=== PATIENT | female | born 1935 | race Two or more races ===

== ENCOUNTER 2017-03-26 23:37 | Inpatient (IN) | payer OTHER ==
--- NOTE | 2017-03-27 00:09 | PDOC ---
History of Present Illness - General Stated Complaint: BLOOD BLISTER/ DIABETES Time Seen by Provider: 03/26/17 23:48 History Source: Patient, Family Exam Limitations: No Limitations - History of Present Illness Initial Comments: 03/27/17 00:13 82y F hx of htn, dm, presents with L foot blister on her 4th toe x 2 weeks, she went to her doctor earlier this week who gave her a topical cream. Earlier today the pt had a rupture of the blister with blood. pt denies any recent trauma, falls, injuries, fever/chills. pt denies any cp, sob, abd pain, n/v. family with patient notes the pts toe looks abit dark yesteday but appears slightly improved today Past History - Past Medical History Allergies/Adverse Reactions: Allergies Allergy/AdvReac Type Severity Reaction Status Date / Time No Known Allergies Allergy Verified 03/27/17 00:14 Review of Systems - Review of Systems Able to Perform ROS?: Yes Comments:: 03/27/17 00:27 Constitutional - no reported Fever, Chills, HEENT: no reported vision changes, sore throat Respiratory: no reported cough, sob, hemoptysis Cardiac: no reported chest pain, palpitations, light headedness, leg swelling Abd/GI: no reported abd pain, nausea, vomiting, blood per rectum, melena, diarrhea : no reported dysuria, frequency, discharge Musculskelatal - no reported back pain, joint swelling skin - +foot wound no reported bruising, erythema, rash neurological: no reported headache, numbness, focal weakness, tingling, ataxia, hematologic: no reported anemia, easy bruising, easy bleeding *Physical Exam - Physical Exam Comments: 03/27/17 00:31 GENERAL: The patient is awake, alert, and fully oriented, Nontoxic - in no acute distress. HEAD: Normocephalic, atraumatic. EYES: extraocular movements intact, sclera anicteric, conjunctiva clear. ENT: Normal voice, Moist mucous membranes. NECK: Normal range of motion, supple LUNGS: Breath sounds equal, clear to auscultation bilaterally. No wheezes, no rhonchi, no rales. HEART: Regular rate and rhythm, normal S1 and S2 without murmur, rub or gallop. ABDOMEN: obese, Soft, nontender, normoactive bowel sounds. No guarding, no rebound. . No CVA tenderness EXTREMITIES: Normal range of motion, ulcer on the pts plantar aspect of 4th digit on left foot, no discharge or bleeding, +foul smelling, +deroofed blister , NEUROLOGICAL: No facial assymetry, Normal speech, moving all 4 extremities spontaneusly and symmetrically PSYCH: Normal mood, normal affect. SKIN: Warm, Dry, normal turgor, ED Treatment Course - LABORATORY CBC & Chemistry Diagram: 03/27/17 00:40 03/27/17 00:40 Medical Decision Making - Medical Decision Making 03/27/17 00:39 concern for possible diabetic ulcer vs osteo will obtain blood work, xray to r/o osteo will reasses 03/27/17 02:39 labs reviewed noted for mild elevation of cr/esr, leukocytosis the pts foot xray shws no gas there does appear to be erosion of the bone on the 4th digit cxr negative pt given zosyn will admit for further management of diabetic ulcer/wound 03/27/17 02:[address] jacobson agreed with admision for further management will admit to med surg under dr. mon service for management of diabetic ulcer and concern for osteomyelitis Case discussed in detail with admitting physician including history, physical exam and ancillary studies. Admitting physician has assumed care for the patient, will follow all pending diagnostics and will complete the evaluation and treatment. *DC/Admit/Observation/Transfer Diagnosis at time of Disposition: Diabetic ulcer of left foot Qualifiers: Diabetic foot ulcer location: toe Diabetes mellitus type: type 1 Non-pressure ulcer stage: with necrosis of bone Qualified Code(s): E10.621 - Type 1 diabetes mellitus with foot ulcer - Discharge Dispostion Admit: Yes - Referrals Referrals: STAFF,NOT ON [Primary Care Provider] -
[2017-03-27 00:54] LABS: BASOPHIL 1.1 % (0-2.0); EOSINOPHIL 1.8 % (0-4.5); MCH 25.8 pg (25.7-33.7); MEAN CELL VOLUME 80.7 fl (80-96); MEAN PLT VOLUME 10.9 fl (7.5-11.1); NEUTROPHILS 62.3 % (42.8-82.8); PLATELET COUNT 201 K/MM3 (134-434); RDW 16.1 % (11.6-15.6); WHITE BLOOD COUNT 10.6 K/mm3 (4.0-10.0)
[2017-03-27 01:12] LABS: PLATELET ESTIMATE ADEQUATE (NORMAL)
[2017-03-27 01:16] LABS: ALK PHOS 156 U/L (45-117); ANION GAP 9 (8-16); BILIRUBIN,TOTAL 0.3 mg/dL (0.2-1.0); C-REACTIVE PROTEIN 0.9 MG/DL (0.00-0.3); CALCIUM 8.7 mg/dL (8.5-10.1); CO2 29 mmol/L (21-32); CREATININE 1.1 mg/dL (0.55-1.02); SGOT/AST 12 U/L (15-37); SGPT/ALT 20 U/L (12-78); TOT PROT 7.4 g/dl (6.4-8.2)
[2017-03-27 01:18] LABS: GLUCOSE,RANDOM 321 mg/dL (74-106)
[2017-03-27 02:05] LABS: ERYTHROCYTE SEDIMENTATION RATE 32 mm/hr (0-30)
[2017-03-27] MEDS ORDERED: PIPERACILLIN/TAZOB 4.5 GM/100 ML PRE-DOCKED IVPB ONE (02:10)
[2017-03-27] MEDS ORDERED: PIPERACILLIN/TAZOB 4.5 GM 100 ML IVPB ONE (02:26)
[2017-03-27] MEDS ORDERED: LISINOPRIL 20 MG TABLET (FP) PO ONE (03:55)
[2017-03-27] MEDS ORDERED: HYDROCHLOROTHIAZIDE 25 MG TABLET (FP) PO ONE (03:55)
--- NOTE | 2017-03-27 03:58 | HP ---
<Mo Chadwick - Last Filed: 03/30/17 08:42> CHIEF COMPLAINT: blister popping and bleeding PCP: Dr. Maddox HISTORY OF PRESENT ILLNESS: 82F hx of HtN and IDDM presenting with left 4th toe blister for past 2 weeks. Pt states that she went to her doctor earlier this week and was prescribed a topical cream. Earlier today the pt had a rupture of the blister with bleeding. She states that the pain is in her toe is sharp, 4/10 in severity, and she is able to ambulate on it. Pt denies any recent trauma, falls, injuries, fever/ chills, SOB, chest pain, abdominal pain, n/v/d/c, and dysuria. ER course was notable for: Foot XR showing bony erosion of distal phalanx of 4th toe. Recent Travel: none PAST MEDICAL HISTORY: HTN IDDM PAST SURGICAL HISTORY: Hysterectomy Social History: Smoking: none Alcohol: none Drugs: none Lives with daughter Family History: Allergies No Known Allergies Allergy (Verified 03/27/17 00:14) HOME MEDICATIONS: REVIEW OF SYSTEMS CONSTITUTIONAL: Absent: fever, chills, diaphoresis, generalized weakness, malaise, loss of appetite, weight change HEENT: Absent: rhinorrhea, nasal congestion, throat pain, throat swelling, difficulty swallowing, mouth swelling, ear pain, eye pain, visual changes CARDIOVASCULAR: Absent: chest pain, syncope, palpitations, irregular heart rate, lightheadedness , peripheral edema RESPIRATORY: Absent: cough, shortness of breath, dyspnea with exertion, orthopnea, wheezing, stridor, hemoptysis GASTROINTESTINAL: Absent: abdominal pain, abdominal distension, nausea, vomiting, diarrhea, constipation, melena, hematochezia GENITOURINARY: Absent: dysuria, frequency, urgency, hesitancy, hematuria, flank pain, genital pain MUSCULOSKELETAL: Absent: myalgia, arthralgia, joint swelling, back pain, neck pain Present: toe pain, toe blister SKIN: Absent: rash, itching, pallor HEMATOLOGIC/IMMUNOLOGIC: Absent: easy bleeding, easy bruising, lymphadenopathy, frequent infections ENDOCRINE: Absent: unexplained weight gain, unexplained weight loss, heat intolerance, cold intolerance NEUROLOGIC: Absent: headache, focal weakness or paresthesias, dizziness, unsteady gait, seizure, mental status changes, bladder or bowel incontinence PSYCHIATRIC: Absent: anxiety, depression, suicidal or homicidal ideation, hallucinations. PHYSICAL EXAMINATION GENERAL: Awake, alert, and fully oriented, in no acute distress. HEAD: Normal with no signs of trauma. EYES: Pupils equal, round and reactive to light, extraocular movements intact, sclera anicteric, conjunctiva clear. No lid lag. EARS, NOSE, THROAT: Ears normal, nares patent, oropharynx clear without exudates. Moist mucous membranes. NECK: Normal range of motion, supple without lymphadenopathy, JVD, or masses. LUNGS: Breath sounds equal, clear to auscultation bilaterally. No wheezes, and no crackles. No accessory muscle use. HEART: Regular rate and rhythm, normal S1 and S2 without murmur, rub or gallop. ABDOMEN: Soft, nontender, not distended, normoactive bowel sounds, no guarding, no rebound, no masses. No hepatomegaly or splenomegaly. MUSCULOSKELETAL: left 4th distal phalanx shows a ruptured blister, a plantar 1.5cm ulcer mostly covered by a clot, and a horizontal laceration at the distal aspect. The entire toe is discolored, sensation is intact, motor function is intact, mildly tender to palpation. DP and PT pulses are 1+ in left foot. NEUROLOGICAL: Cranial nerves II-XII intact. Normal speech. gait not observed. PSYCHIATRIC: Cooperative. Good eye contact. Appropriate mood and affect. ASSESSMENT/PLAN: 82F hx of HTN and IDDM presenting with acute left 4th distal toe ruptured blister and plantar ulcer, found to be hypertensive to 190/67 and have XR evidence of bony erosion, suspicious for osteomyelitis. #left 4th distal toe ruptured blister and plantar ulcer -likely 2/2 to hx of IDDM -XR evidence of bony erosion, suspicious for osteomyelitis. F/u final radiology report -wbc count of 10.6, no temp recorded, minimally elevated CRP and ESR. trend wbc and temps -ID on board, Dr. Pennington, f/u recs -continue zosyn for now, consider vanc coverage for MRSA -podiatry on board -f/u wound cx and sensitivities -APAP for pain or temp -MRI w/ contrast ordered #HTN -continue home dose of lisinopril 40mg qd and HCTZ 25mg qd -monitor BP #IDDM -ISS, BGM ACHS -f/u Hgba1c #HLD -continue atorvastatin 20mg qd #FEN/PPx -NS at 100 -electrolytes wnl -diabetic diet -no GI ppx -lovenox 40 -Mo Chadwick MD PGY1 Visit type - Emergency Visit Emergency Visit: Yes ED Registration Date: 03/27/17 Care time: The patient presented to the Emergency Department on the above date and was hospitalized for further evaluation of their emergent condition. - New Patient This patient is new to me today: Yes Date on this admission: 03/30/17 - Critical Care Critical Care patient: No <Betty Martinez - Last Filed: 03/30/17 13:12> Attending Note Patient seen and examined with resident, case discussed and plans agreed on as documented in H&P. Empiric coverage with Vanc and zosyn, r/o osteomyelitis Wound care for toe laceration on plantar aspect ID consult and podiatry consult
[2017-03-27] MEDS ORDERED: ACETAMINOPHEN 325 MG TABLET (FP) PO PRN (04:18)
[2017-03-27 06:38] LABS: BASOPHIL 1.1 % (0-2.0); MCH 25.6 pg (25.7-33.7); MCHC 31.9 g/dl (32.0-36.0); MEAN CELL VOLUME 80.3 fl (80-96); MEAN PLT VOLUME 10.7 fl (7.5-11.1); NEUTROPHILS 58.3 % (42.8-82.8); PLATELET COUNT 237 K/MM3 (134-434); WHITE BLOOD COUNT 11.5 K/mm3 (4.0-10.0)
[2017-03-27] MEDS ORDERED: VANCOMYCIN 1 GRAM (PRE-DOCKED) 1,000 MG/250 ML BAG IVPB ONE (06:56)
[2017-03-27] MEDS ORDERED: INSULIN SLIDING SCALE (NOVOLOG) 1 VIAL SQ SCH ×2 (07:00)
[2017-03-27 07:04] LABS: ANION GAP 6 (8-16); CALCIUM 9.6 mg/dL (8.5-10.1); CO2 33 mmol/L (21-32); GLUCOSE,RANDOM 233 mg/dL (74-106)
[2017-03-27 07:06] LABS: CREATININE 1.2 mg/dL (0.55-1.02)
[2017-03-27] MEDS ORDERED: SODIUM CHLORIDE 1,000 ML IV SCH ×2 (07:15→09:37)
[2017-03-27 07:30] LABS: PLATELET ESTIMATE ADEQUATE (NORMAL)
[2017-03-27] MEDS ORDERED: VANCOMYCIN 1 GRAM (PRE-DOCKED) 250 ML IVPB ONE (07:38)
--- NOTE | 2017-03-27 09:31 | PN ---
Progress Note (short form) - Note Progress Note: Subjective: denies any pain in foot, has no CP or SOB. denies taking any Abx for her toe infection prior to presentation Objective: Vital Signs: Last Vital Signs Temp Pulse Resp BP Pulse Ox 98.6 F 82 16 185/87 95 03/27/17 06:53 03/27/17 06:53 03/27/17 06:53 03/27/17 06:53 03/27/17 06:53 Laboratory Results - last 24 hr 03/27/17 03/27/17 03/27/17 00:40 00:40 06:27 WBC 10.6 H 11.5 H RBC 5.08 5.43 H Hgb 13.1 13.9 Hct 41.0 43.6 MCV 80.7 80.3 MCH 25.8 25.6 L MCHC 32.0 31.9 L RDW 16.1 H 16.0 H Plt Count 201 237 MPV 10.9 10.7 Neutrophils % 62.3 58.3 Lymphocytes % 23.2 29.7 D Monocytes % 11.6 H 8.9 Eosinophils % 1.8 2.0 Basophils % 1.1 1.1 Platelet Estimate Adequate Adequate Platelet Comment Rare giant plts Rare giant plts ESR 32 H Sodium 136 Potassium 4.0 Chloride 98 Carbon Dioxide 29 Anion Gap 9 BUN 28 H Creatinine 1.1 H Creat Clearance w eGFR 47.67 Random Glucose 321 H* Hemoglobin A1c % Calcium 8.7 Total Bilirubin 0.3 AST 12 L ALT 20 Alkaline Phosphatase 156 H C-Reactive Protein 0.9 H Total Protein 7.4 Albumin 3.0 L 03/27/17 03/27/17 06:27 06:27 WBC RBC Hgb Hct MCV MCH MCHC RDW Plt Count MPV Neutrophils % Lymphocytes % Monocytes % Eosinophils % Basophils % Platelet Estimate Platelet Comment ESR Sodium 138 Potassium 4.4 Chloride 99 Carbon Dioxide 33 H Anion Gap 6 L BUN 23 H Creatinine 1.2 H Creat Clearance w eGFR Random Glucose 233 H D Hemoglobin A1c % 7.3 H Calcium 9.6 Total Bilirubin AST ALT Alkaline Phosphatase C-Reactive Protein Total Protein Albumin Physical Exam: NAD, MMM, No JVD CV : RRR, 2/6 SM at RUSBA nd LUSB Lungs : minimal scattered wheezing . no crackles Abd: obese , soft, NT, ND , nl BS Ext: no edema over legs. L foot with a wound on the plantar surface of 4th tow. a collection is seen under skin on that toe. when squeezed pus came out. no TTP. sanguinous drainage seen. DP 2+ bl and PT 2+ b/l Assessment/Plan: 82 y/o pleasant lady withh/o HTN and IDDM who presented with a draining wound on L 4th toe. She was found to have infected wound with abscess. 1- L 4th toe infected wound with abscess formation. Need to r/o OM. there is no signs of sepsis I don;t see any gas on Foot Xray. - send blood cx and culture form wound . - cont vanco and zosyn given abscess formation and diabetes - MRI with Dorothy ordered ( risk of Nephrogenic systemic fibrosis is very low given her GFR of 47 , this was explained to patient and daughter) - CRP is slightly elevated and ESR is NL for age . 2- HTN urgency. No sx . BP 190 on admission , and this am 185. HCTZ and lisinopril are being held for FRANKIE. - give stat dose of 10 mg of norvasc and cont daily until her renal function stabilize 3- FRANKIE: not clear if FRANKIE or CKD ,. No base line to compare. - cont IVF for now . decrease to 75 given scattered wheezing on exam. No other signs of fluid overload - will obtain base line renal function from PCP on Tuesday 4- IDDM : - Start her home dose levemir 35 BID - Cont SSI , dc HS coverage of SSI 5- DVT PX : dc lovenox and start Heparin sq Meds were collected, confirmed with daughter and updated in EMR. Visit type - Emergency Visit Emergency Visit: Yes ED Registration Date: 03/27/17 Care time: The patient presented to the Emergency Department on the above date and was hospitalized for further evaluation of their emergent condition. - New Patient This patient is new to me today: Yes Date on this admission: 03/27/17 - Critical Care Critical Care patient: No
[2017-03-27] MEDS: amLODIPine BESYLATE 10 MG TABLET (FP) PO SCH (09:51)
[2017-03-27] MEDS ORDERED: ENOXAPARIN NA (PORCINE) 40 MG/0.4 ML DISP.SYRIN SQ SCH (10:00)
[2017-03-27] MEDS ORDERED: PIPERACILLIN/TAZOB 3.375 GM/50 ML PRE-DOCKED IV ONE (10:30)
[2017-03-27] MEDS: INSULIN DETEMIR 100 UNITS/ML MDV SQ SCH ×2 (11:46→21:32)
[2017-03-27] MEDS: INSULIN SLIDING SCALE (NOVOLOG) 1 VIAL SQ SCH ×2 (11:47→16:21)
[2017-03-27 12:19] VITALS: BMI 28.0
--- NOTE | 2017-03-27 14:32 | CON.ID ---
Consult Consult Specialty:: infectious diseases Reason for Consultation:: left foot 4th toe infection - History of Present Illness Chief Complaint: pain in the left foot 3rd toe History of Present Illness: 82F hx of HtN and dm presenting with left 4th toe blister for past 2 weeks. Pt states that she went to her doctor earlier this week and was prescribed a topical cream. pt had a rupture of the blister with bleeding. She states that the pain is in her toe is sharp, 4/10 in severity, and she is able to ambulate on it. Pt denies any recent trauma, falls, injuries, fever/chills, SOB, chest pain, abdominal pain, n/v/d/c, and dysuria. patient is mainly romansh speaking currently her main complaint is pain otherwise patient is ok - History Source History Provided By: Patient, Medical Record Limitations to Obtaining History: Language Barrier - Alcohol/Substance Use Hx Alcohol Use: No - Smoking History Smoking history: Never smoked Have you smoked in the past 12 months: No Home Medications - Allergies Allergies/Adverse Reactions: Allergies Allergy/AdvReac Type Severity Reaction Status Date / Time No Known Allergies Allergy Verified 03/27/17 00:14 - Home Medications Home Medications: Ambulatory Orders Acetaminophen [Tylenol .Extra-Strength -] PRN 03/27/17 Atorvastatin Calcium 20 mg PO 03/27/17 Hydrochlorothiazide 25 mg PO BID 03/27/17 Lisinopril [Prinivil -] 40 mg PO DAILY 03/27/17 Vitamin D3 03/27/17 Review of Systems - Review of Systems Constitutional: reports: No Symptoms Eyes: reports: No Symptoms HENT: reports: No Symptoms Neck: reports: No Symptoms Cardiovascular: reports: No Symptoms Respiratory: reports: No Symptoms Gastrointestinal: reports: No Symptoms Genitourinary: reports: No Symptoms Musculoskeletal: reports: Muscle Pain, Other Integumentary: reports: Change in Color, Erythema Neurological: reports: No Symptoms Endocrine: reports: No Symptoms Hematology/Lymphatic: reports: No Symptoms Psychiatric: reports: No Symptoms Physical Exam Vital Signs: Vital Signs Temperature 98.1 F 03/27/17 09:01 Pulse Rate 84 03/27/17 10:39 Respiratory Rate 16 03/27/17 10:39 Blood Pressure 156/81 03/27/17 10:39 O2 Sat by Pulse Oximetry (%) 96 03/27/17 09:01 Constitutional: Yes: Well Nourished, Calm, Mild Distress Eyes: Yes: Conjunctiva Clear HENT: Yes: Atraumatic Neck: Yes: Supple, Trachea Midline Cardiovascular: Yes: Regular Rate and Rhythm Respiratory: Yes: Regular, CTA Bilaterally Gastrointestinal: Yes: Normal Bowel Sounds, Soft Musculoskeletal: Yes: Other Extremities: Yes: Other Integumentary: Yes: Erythema (of the rt 4th toe change in color) Wound/Incision: Yes: Open to air Neurological: Yes: Alert, Oriented Psychiatric: Yes: Alert, Oriented Labs: CBC, BMP 03/27/17 06:27 03/27/17 06:27 Imaging - Results Chest X-ray: Report Reviewed, Image Reviewed MRI: Report Reviewed, Image Reviewed Assessment/Plan 82F hx of HTN and IDDM presenting with acute left 4th distal toe ruptured blister and plantar ulcer, found to be hypertensive to 190/67 and have XR evidence of bony erosion, suspicious for osteomyelitis. was high which is confiormed by the mri also her wound has a foul smell #left 4th distal toe ruptured blister and plantar ulcer osteomylitis #IDDM #HLD plan we will continue anne and mariel for now await for all cx reports once we have everything in hand we will decide further mgmt await for podiatry to evaluate the patient
[2017-03-27] MEDS: HEPARIN NA (PORCINE) 5,000 UNITS/ML 1ML VIAL SQ SCH ×2 (15:23→21:30)
[2017-03-27] MEDS ORDERED: INSULIN DETEMIR 100 UNITS/ML MDV SQ ONE (16:21)
[2017-03-27] MEDS ORDERED: PIPERACILLIN/TAZOBACTAM 3.375 GM VIAL IVPB ONE ×2 (18:15→20:15)
[2017-03-27] MEDS ORDERED: DEXTROSE 5%-WATER - 50 ML IVPB ONE (18:15)
[2017-03-27] MEDS: PIPERACILLIN/TAZOB 3.375 GM 3.375 GM in DEXTROSE 5%-WATER - 50 ML IVPB SCH (18:18)
[2017-03-27] MEDS: ATORVASTATIN CA 20 MG TABLET (FP) PO SCH (21:30)
[2017-03-28] MEDS ORDERED: PIPERACILLIN/TAZOBACTAM 3.375 GM VIAL IVPB ONE ×3 (01:11→17:28)
[2017-03-28] MEDS ORDERED: DEXTROSE 5%-WATER - 50 ML IVPB ONE ×3 (01:11→17:28)
[2017-03-28] MEDS: PIPERACILLIN/TAZOB 3.375 GM 3.375 GM in DEXTROSE 5%-WATER - 50 ML IVPB SCH ×3 (01:16→17:59)
[2017-03-28] MEDS: HEPARIN NA (PORCINE) 5,000 UNITS/ML 1ML VIAL SQ SCH ×3 (06:22→22:06)
[2017-03-28] MEDS ORDERED: INSULIN (NOVOLOG) ASPART 100 UNITS/ML 10ML VIAL ONE (06:44)
[2017-03-28] MEDS: INSULIN SLIDING SCALE (NOVOLOG) 1 VIAL SQ SCH ×3 (06:45→16:56)
[2017-03-28] MEDS: INSULIN DETEMIR 100 UNITS/ML MDV SQ SCH ×2 (06:47→22:06)
[2017-03-28 07:04] LABS: BASOPHIL 0.8 % (0-2.0); MCH 25.7 pg (25.7-33.7); MCHC 31.9 g/dl (32.0-36.0); MEAN CELL VOLUME 80.5 fl (80-96); MEAN PLT VOLUME 10.7 fl (7.5-11.1); PLATELET COUNT 215 K/MM3 (134-434); RDW 16.3 % (11.6-15.6); WHITE BLOOD COUNT 8.6 K/mm3 (4.0-10.0)
[2017-03-28 07:26] LABS: ANION GAP 5 (8-16); CALCIUM 8.7 mg/dL (8.5-10.1); CO2 31 mmol/L (21-32); CREATININE 1.1 mg/dL (0.55-1.02); GLUCOSE,RANDOM 186 mg/dL (74-106)
[2017-03-28] MEDS: amLODIPine BESYLATE 10 MG TABLET (FP) PO SCH (09:50)
[2017-03-28] MEDS: VANCOMYCIN 1,250 MG in DEXTROSE 5%-WATER - 250 ML IVPB SCH (11:56)
--- NOTE | 2017-03-28 12:16 | CONSULT ---
Consult - text type - Consultation Consultation Note: Podiatry Consultation: 82 year old IDDM presents with L 4th toe ulcer, concern for osteomyelitis. Patient's daughter states the ulcer started about 3 weeks ago as a blister that has now worsened. She presented to her primary care doctor who recommended admission for abx. She denies F/V/N/C/SOB/CP. She is afebrile with VSS. PMHx: IDDM, HTN Meds: noted in chart ALL: NKMA JEREMIAH: L foot: pedal pulses non-palpable, TG wnl, CFT about 4 seconds to all toes. There is a plantar distal tuft ulcer with fibrotic base, superficial purulence, probes deep to bone, no deep purulence, no fluctuance, no soft tissue crepitus, no periwound erythema, no ascending cellulitis, no signs of active infection. Mild tenderness to palpation. WBC: 8.6 ESR: 32 Blood Cx: no growth x 24 hrs Wound Cx: staph coag negative MRI: osteomyelitis distal phalanx 4th digit Imp: 82 year old IDDM F with L 4th digit ulcer and osteomyelitis 1. With patient's consent, excisional debridement performed to subcutaneous tissue using #15 blade scalpel. DSD applied to L foot. Patient tolerated the procedure well without complications. 2. New wound cx obtained, will f/u. 3. Rx for surgical shoe. 4. Rx for bactroban. Nursing for dressing changes QOD. 5. Discussed treatment options with patient and her daughter. They would like to attempt treatment with intravenous abx. I explained the risk of worsening of ulcer and potential for amputation in the future, which they understand. 6. Abx per infectious disease. Will need home nursing services for IV abx and local wound care with dressing changes every other day with bactroban and DSD. 7. Thank you for the courtesy of this consultation. Natasha Ricketts DPM
--- NOTE | 2017-03-28 13:29 | PN ---
Teaching Attending Note Name of Resident: Mo Chadwick ATTENDING PHYSICIAN STATEMENT I saw and evaluated the patient. I reviewed the resident's note and discussed the case with the resident. I agree with the resident's findings and plan as documented. SUBJECTIVE: No fever or chills, has no pain except in her L 4th toe when examined. No SOB , no cough OBJECTIVE: NAD, MMM, No JVD CV: RRR, 2/6 SM at RUSB and LUSB Lungs: no crackles , clear lungs Abd: obese , soft, NT, ND , nl BS Ext: no edema over legs. L foot with a wound on the plantar surface of 4th tow. when squeezed pus came out. TTP. DP 2+ bl and PT 2+ b/l Assessment/Plan: 82 y/o pleasant lady with h/o HTN and IDDM who presented with a draining wound on L 4th toe. She was found to have infected wound with abscess. 1- L 4th toe infected wound with abscess formation and OM - Follow blood cxand final results of wound ( initial G stain with G- Rods and G + cocci in clusters ) - cont vanco and zosyn - vanco trough this evening - debridment done today, appreciate Dr. Ricketts's help. No amputation to be done 2- HTN urgency. cont Norvasc for now if renal function remains stable by tomorrow , will resume her meds 3- FRANKIE: Might have CKD - dc IVF - monitor on oral hydration 4- IDDM : - COnt home dose levemir 35 BID - Cont SSI 5- DVT PX : Heparin sq D/W daughter, the need for long-term ABx . Her options for Rehab VS HOme with IV abx were d/w her . family and patient want home with VNS . CM updated by team. if Culture results are back by tomorrow , then will be ready
[2017-03-28] MEDS ORDERED: LISINOPRIL 20 MG TABLET (FP) PO ONE (17:33)
--- NOTE | 2017-03-28 17:56 | PN ---
Physical Exam: SUBJECTIVE: Patient seen and examined. No acute events overnight, pt reports no/little pain in affected toe. She denies headache, chest pain, SOB, abdominal pain, and dysuria. OBJECTIVE: Vital Signs Period Temp Pulse Resp BP Sys/Cormier Pulse Ox Last 24 Hr 97.8 F-99.8 F 59-76 18-18 155-171/64-89 96 GENERAL: The patient is awake, alert, and fully oriented, in no acute distress. HEAD: Normal with no signs of trauma. EYES: PERRL, extraocular movements intact, sclera anicteric, conjunctiva clear. No ptosis. ENT: Ears normal, nares patent, oropharynx clear without exudates, moist mucous membranes. NECK: Trachea midline, full range of motion, supple. LUNGS: Breath sounds equal, clear to auscultation bilaterally, no wheezes, no crackles, no accessory muscle use. HEART: Regular rate and rhythm, S1, S2 without murmur, rub or gallop. ABDOMEN: Soft, nontender, nondistended, normoactive bowel sounds, no guarding, no rebound, no hepatosplenomegaly, no masses. EXTREMITIES: left 4th distal phalanx shows a ruptured abscess draining yellow pus upon expression with a layer of skin on the distal aspect. The entire toe is discolored, sensation is intact, motor function is intact, mildly tender to palpation. DP and PT pulses are 1+ in left foot. NEUROLOGICAL: Cranial nerves II through XII grossly intact. Normal speech, gait not observed. PSYCH: Normal mood, normal affect. SKIN: Warm, dry, normal turgor, no rashes or lesions noted Laboratory Results - last 24 hr 03/27/17 03/28/17 03/28/17 21:31 06:25 06:40 WBC 8.6 RBC 5.09 Hgb 13.1 Hct 40.9 MCV 80.5 MCH 25.7 MCHC 31.9 L RDW 16.3 H Plt Count 215 MPV 10.7 Neutrophils % 62.0 Lymphocytes % 23.3 D Monocytes % 9.9 Eosinophils % 4.0 D Basophils % 0.8 Sodium Potassium Chloride Carbon Dioxide Anion Gap BUN Creatinine POC Glucometer 301 183 Random Glucose Calcium 03/28/17 03/28/17 03/28/17 06:40 11:58 16:54 WBC RBC Hgb Hct MCV MCH MCHC RDW Plt Count MPV Neutrophils % Lymphocytes % Monocytes % Eosinophils % Basophils % Sodium 140 Potassium 3.8 Chloride 104 Carbon Dioxide 31 Anion Gap 5 L BUN 19 H Creatinine 1.1 H POC Glucometer 259 271 Random Glucose 186 H D Calcium 8.7 Active Medications Generic Name Dose Route Start Last Admin Trade Name Freq PRN Reason Stop Dose Admin Acetaminophen 650 mg 03/27/17 04:18 Tylenol - PO Q6H PRN FEVER OR PAIN Amlodipine Besylate 10 mg 03/27/17 10:00 03/28/17 09:50 Norvasc - PO 10 mg DAILY TYE Administration Atorvastatin Calcium 20 mg 03/27/17 22:00 03/27/17 21:30 Lipitor - PO 20 mg HS TYE Administration Heparin Sodium (Porcine) 5,000 unit 03/27/17 14:00 03/28/17 14:50 Heparin - SQ 5,000 unit TID TYE Administration Vancomycin HCl 1,250 mg/ 250 mls @ 166.667 mls/hr 03/28/17 10:00 03/28/17 11:56 Dextrose IVPB 166.667 mls/hr DAILY TYE Administration Protocol Piperacillin Sod/Tazobactam 50 mls @ 100 mls/hr 03/27/17 18:00 03/28/17 09:50 Sod 3.375 gm/ Dextrose IVPB 100 mls/hr Q8H-IV TYE Administration Protocol Insulin Aspart 1 vial 03/27/17 11:00 03/28/17 16:56 Novolog Vial Sliding Scale - SQ 6 units TIDAC TYE Administration Protocol Insulin Detemir 35 units 03/27/17 22:00 03/27/17 21:32 Levemir Vial SQ 35 units HS TYE Administration Insulin Detemir 35 units 03/27/17 11:45 03/28/17 06:47 Levemir Vial SQ 35 units AM TYE Administration Mupirocin 1 applic 03/28/17 22:00 Bactroban 2% Ointment - TP BID [facility] ASSESSMENT/PLAN: 82F hx of HTN and IDDM presenting with acute left 4th distal toe pain, found to have hypertensive urgency of 190/67 and a left 4th toe ruptured abscess complicated by osteomyelitis, being treated with vancomycin and zosyn. #left 4th distal toe abscess complicated by osteomyelitis -MRI foot: osteomyelitis -ID on board, Dr. Pennington, f/u recs -continue zosyn and vancomycin (day 2) for now -podiatry on board, appreciated recs, will f/u new wound cx (03/28) -wound cx (03/27): growing staph coag negative, f/u sensitivities -APAP for pain or temp #HTN -lisinopril 40mg qd and HCTZ 25mg qd held due to possible FRANKIE (creatinine of 1.1, unknown baseline) -monitor BP -if creatinine remains same jonna, will continue home meds #IDDM -ISS, BGM ACHS -a1c of 7.3 -BGMs of 180-300, likely high 2/2 infection. If remain high jonna, will increase insulin regimen #HLD -continue atorvastatin 20mg qd #FEN/PPx -no more fluids -electrolytes wnl -diabetic diet -no GI ppx -heparin 5,000U TID -Mo Chadwick MD PGY1 Visit type - Emergency Visit Emergency Visit: Yes ED Registration Date: 03/27/17 Care time: The patient presented to the Emergency Department on the above date and was hospitalized for further evaluation of their emergent condition. - New Patient This patient is new to me today: No - Critical Care Critical Care patient: No
--- NOTE | 2017-03-28 19:38 | PN ---
Progress Note, Physician History of Present Illness: doing well no issues seen by podiatry family lenaing towards conservative treatment - Current Medication List Current Medications: Active Medications Acetaminophen (Tylenol -) 650 mg PO Q6H PRN PRN Reason: FEVER OR PAIN Amlodipine Besylate (Norvasc -) 10 mg PO DAILY [facility] Last Admin: 03/28/17 09:50 Dose: 10 mg Atorvastatin Calcium (Lipitor -) 20 mg PO HS [facility] Last Admin: 03/27/17 21:30 Dose: 20 mg Heparin Sodium (Porcine) (Heparin -) 5,000 unit SQ TID [facility] Last Admin: 03/28/17 14:50 Dose: 5,000 unit Vancomycin HCl 1,250 mg/ (Dextrose) 250 mls @ 166.667 mls/hr IVPB DAILY [facility] PRN Reason: Protocol Last Admin: 03/28/17 11:56 Dose: 166.667 mls/hr Piperacillin Sod/Tazobactam (Sod 3.375 gm/ Dextrose) 50 mls @ 100 mls/hr IVPB Q8H-IV [facility] PRN Reason: Protocol Last Admin: 03/28/17 17:59 Dose: 100 mls/hr Insulin Aspart (Novolog Vial Sliding Scale -) 1 vial SQ TIDAC [facility] PRN Reason: Protocol Last Admin: 03/28/17 16:56 Dose: 6 units Insulin Detemir (Levemir Vial) 35 units SQ HS [facility] Last Admin: 03/27/17 21:32 Dose: 35 units Insulin Detemir (Levemir Vial) 35 units SQ AM [facility] Last Admin: 03/28/17 06:47 Dose: 35 units Mupirocin (Bactroban 2% Ointment -) 1 applic TP BID [facility] - Objective Vital Signs: Vital Signs Temperature 99.4 F 03/28/17 18:14 Pulse Rate 80 03/28/17 18:14 Respiratory Rate 20 03/28/17 18:14 Blood Pressure 161/59 03/28/17 18:14 O2 Sat by Pulse Oximetry (%) 96 03/28/17 09:00 Constitutional: Yes: No Distress, Calm Cardiovascular: Yes: Regular Rate and Rhythm Respiratory: Yes: Regular, CTA Bilaterally Gastrointestinal: Yes: Normal Bowel Sounds, Soft Musculoskeletal: Yes: Other Extremities: Yes: Erythema (improving), Other Integumentary: Yes: Erythema (improving) Wound/Incision: Yes: Other Neurological: Yes: Alert, Oriented Psychiatric: Yes: Alert, Oriented Labs: CBC, BMP 03/28/17 06:40 03/28/17 06:40 Assessment/Plan 82F hx of HTN and IDDM presenting with acute left 4th distal toe ruptured blister and plantar ulcer, found to be hypertensive to 190/67 and have XR evidence of bony erosion, suspicious for osteomyelitis. was high which is confiormed by the mri also her wound has a foul smell #left 4th distal toe ruptured blister and plantar ulcer osteomylitis #IDDM #HLD plan continue abx await for cx taken by podiatry rest as per primary team
[2017-03-28] MEDS ORDERED: PT OWN MED DRAWER 7, Y5N ONE (22:01)
[2017-03-28] MEDS: ATORVASTATIN CA 20 MG TABLET (FP) PO SCH (22:07)
[2017-03-28] MEDS: MUPIROCIN 2% TOPICAL OINTMENT 22 GM TUBE TP SCH (22:55)
[2017-03-28] MEDS ORDERED: MELATONIN 1 MG TABLET PO ONE (23:05)
[2017-03-29] MEDS ORDERED: PIPERACILLIN/TAZOBACTAM 3.375 GM VIAL IVPB ONE ×3 (01:49→17:37)
[2017-03-29] MEDS ORDERED: DEXTROSE 5%-WATER - 50 ML IVPB ONE ×3 (01:50→17:37)
[2017-03-29] MEDS: PIPERACILLIN/TAZOB 3.375 GM 3.375 GM in DEXTROSE 5%-WATER - 50 ML IVPB SCH ×3 (02:22→18:36)
[2017-03-29] MEDS: HEPARIN NA (PORCINE) 5,000 UNITS/ML 1ML VIAL SQ SCH ×3 (06:35→21:49)
[2017-03-29] MEDS: INSULIN DETEMIR 100 UNITS/ML MDV SQ SCH ×2 (06:35→21:51)
[2017-03-29] MEDS: INSULIN SLIDING SCALE (NOVOLOG) 1 VIAL SQ SCH ×3 (06:36→17:20)
[2017-03-29 08:11] LABS: BASOPHIL 0.8 % (0-2.0); EOSINOPHIL 3.2 % (0-4.5); MCH 25.2 pg (25.7-33.7); MCHC 31.4 g/dl (32.0-36.0); MEAN CELL VOLUME 80.2 fl (80-96); MEAN PLT VOLUME 10.8 fl (7.5-11.1); NEUTROPHILS 55.5 % (42.8-82.8); PLATELET COUNT 226 K/MM3 (134-434); RDW 16.1 % (11.6-15.6); WHITE BLOOD COUNT 11.1 K/mm3 (4.0-10.0)
[2017-03-29] MEDS ORDERED: PT OWN MED DRAWER 7, Y5N ONE ×2 (09:28→13:56)
[2017-03-29] MEDS: amLODIPine BESYLATE 10 MG TABLET (FP) PO SCH (09:38)
[2017-03-29] MEDS: VANCOMYCIN 1,250 MG in DEXTROSE 5%-WATER - 250 ML IVPB SCH (09:38)
[2017-03-29] MEDS ORDERED: INSULIN (NOVOLOG) ASPART 100 UNITS/ML 10ML VIAL ONE (11:51)
[2017-03-29 12:32] LABS: ANION GAP 8 (8-16); CALCIUM 9.1 mg/dL (8.5-10.1); CO2 29 mmol/L (21-32); GLUCOSE,RANDOM 179 mg/dL (74-106)
--- NOTE | 2017-03-29 12:59 | PN ---
Progress Note, Physician History of Present Illness: stable no new issues - Current Medication List Current Medications: Active Medications Acetaminophen (Tylenol -) 650 mg PO Q6H PRN PRN Reason: FEVER OR PAIN Amlodipine Besylate (Norvasc -) 10 mg PO DAILY [facility] Last Admin: 03/29/17 09:38 Dose: 10 mg Atorvastatin Calcium (Lipitor -) 20 mg PO HS [facility] Last Admin: 03/28/17 22:07 Dose: 20 mg Heparin Sodium (Porcine) (Heparin -) 5,000 unit SQ TID [facility] Last Admin: 03/29/17 06:35 Dose: 5,000 unit Vancomycin HCl 1,250 mg/ (Dextrose) 250 mls @ 166.667 mls/hr IVPB DAILY [facility] PRN Reason: Protocol Last Admin: 03/29/17 09:38 Dose: 166.667 mls/hr Piperacillin Sod/Tazobactam (Sod 3.375 gm/ Dextrose) 50 mls @ 100 mls/hr IVPB Q8H-IV [facility] PRN Reason: Protocol Last Admin: 03/29/17 09:38 Dose: 100 mls/hr Insulin Aspart (Novolog Vial Sliding Scale -) 1 vial SQ TIDAC [facility] PRN Reason: Protocol Last Admin: 03/29/17 12:06 Dose: 6 units Insulin Detemir (Levemir Vial) 35 units SQ HS [facility] Last Admin: 03/28/17 22:06 Dose: 35 units Insulin Detemir (Levemir Vial) 35 units SQ AM [facility] Last Admin: 03/29/17 06:35 Dose: 35 units Mupirocin (Bactroban 2% Ointment -) 1 applic TP BID [facility] Last Admin: 03/28/17 22:55 Dose: 1 applic - Objective Vital Signs: Vital Signs Temperature 98.4 F 03/29/17 09:00 Pulse Rate 70 03/29/17 09:00 Respiratory Rate 20 03/29/17 09:00 Blood Pressure 153/69 03/29/17 09:00 O2 Sat by Pulse Oximetry (%) 96 03/28/17 21:00 Constitutional: Yes: No Distress, Calm Cardiovascular: Yes: Regular Rate and Rhythm Respiratory: Yes: Regular, CTA Bilaterally Gastrointestinal: Yes: Normal Bowel Sounds, Soft Musculoskeletal: Yes: Other Extremities: Yes: Other Neurological: Yes: Alert, Oriented Psychiatric: Yes: Alert, Oriented Labs: CBC, BMP 03/29/17 07:00 03/29/17 12:22 Assessment/Plan 82F hx of HTN and IDDM presenting with acute left 4th distal toe ruptured blister and plantar ulcer, found to be hypertensive to 190/67 and have XR evidence of bony erosion, suspicious for osteomyelitis. was high which is confiormed by the mri also her wound has a foul smell #left 4th distal toe ruptured blister and plantar ulcer osteomylitis #IDDM #HLD plan continue abx await for cx taken by podiatry rest as per primary team still awaitng for results
[2017-03-29] MEDS: MUPIROCIN 2% TOPICAL OINTMENT 22 GM TUBE TP SCH ×2 (14:08→21:49)
--- NOTE | 2017-03-29 15:04 | PN ---
Progress Note (short form) - Note Progress Note: Podiatry F/U: Seen/evaluated at bedside, NAD. Denies F/V/N/C/SOB/CP. Currently afebrile, VSS. Patient seen at bedside with daughter. I had discussed treatment options at length with the patient yesterday, however she is now unsure how she wants to proceed. JEREMIAH: L foot: pedal pulses non-palpable, TG wnl, CFT delayed to fourth toe. There is a distal tuft ulcer fourth digit with fibrogranular base, hyperkeratotic borders , probes to bone, (+) purulence expressed on palpation, no soft tissue crepitus , no fluctuance, no streaking cellulitis. Mild tenderness to palpation. WBC: 11.1 ESR: 32 Wound Cx: pending L foot MRI: bone marrow edema distal phalanx fourth digit Imp: 82 year old DM F with L fourth digit ulcer and osteomyelitis 1. Excisional debridement fourth digit ulcer left foot to subcutaneous tissue using #15 blade scalpel. All purulence expressed from the ulcer and dressed with bactroban + DSD. 2. Continue local wound care. 3. After having a thorough discussion with the patient and daugther, they think they might want to proceed with partial amputation of the toe. I explained risks of delayed healing, worsening infection. I recommended vascular studies first to assess peripheral circulation. She may need vascular consultation depending on results. 4. Will f/u vascular studies. 5. Will follow. Natasha Ricketts DPM
[2017-03-29] MEDS: LISINOPRIL 20 MG TABLET (FP) PO SCH (15:14)
--- NOTE | 2017-03-29 15:28 | PN ---
Physical Exam: SUBJECTIVE: Patient seen and examined. No acute events overnight. Pt denies fevers, chills, worsening toe pain, SOB, chest pain, abdominal pain, n/v/d/c. OBJECTIVE: Vital Signs Period Temp Pulse Resp BP Sys/Cormier Pulse Ox Last 24 Hr 97.4 F-99.4 F 61-80 18-20 138-161/56-69 96 GENERAL: The patient is awake, alert, and fully oriented, in no acute distress. HEAD: Normal with no signs of trauma. EYES: PERRL, extraocular movements intact, sclera anicteric, conjunctiva clear. No ptosis. ENT: Ears normal, nares patent, oropharynx clear without exudates, moist mucous membranes. NECK: Trachea midline, full range of motion, supple. LUNGS: Breath sounds equal, clear to auscultation bilaterally, no wheezes, no crackles, no accessory muscle use. HEART: Regular rate and rhythm, S1, S2 without murmur, rub or gallop. ABDOMEN: Soft, nontender, nondistended, normoactive bowel sounds, no guarding, no rebound, no hepatosplenomegaly, no masses. EXTREMITIES: left foot in bandage and cushion boot placed by podiatry. Left 4th distal phalanx shows a ruptured abscess still draining yellow pus upon expression with a layer of skin on the distal aspect. The entire toe is discolored, sensation is intact, motor function is intact, mildly tender to palpation. NEUROLOGICAL: Cranial nerves II through XII grossly intact. Normal speech, gait not observed. PSYCH: Normal mood, normal affect. SKIN: Warm, dry, normal turgor, no rashes or lesions noted Laboratory Results - last 24 hr 03/27/17 03/28/17 03/28/17 07:28 16:54 22:05 WBC RBC Hgb Hct MCV MCH MCHC RDW Plt Count MPV Neutrophils % Lymphocytes % Monocytes % Eosinophils % Basophils % Sodium Potassium Chloride Carbon Dioxide Anion Gap BUN Creatinine POC Glucometer 268.19492 271 257 Random Glucose Calcium Random Vancomycin 03/29/17 03/29/17 03/29/17 05:29 07:00 07:00 WBC 11.1 H RBC 5.45 H Hgb 13.7 Hct 43.7 MCV 80.2 MCH 25.2 L MCHC 31.4 L RDW 16.1 H Plt Count 226 MPV 10.8 Neutrophils % 55.5 Lymphocytes % 32.5 D Monocytes % 8.0 Eosinophils % 3.2 Basophils % 0.8 Sodium Potassium Chloride Carbon Dioxide Anion Gap BUN Creatinine POC Glucometer 193 Random Glucose Calcium Random Vancomycin 6.751 03/29/17 03/29/17 11:42 12:22 WBC RBC Hgb Hct MCV MCH MCHC RDW Plt Count MPV Neutrophils % Lymphocytes % Monocytes % Eosinophils % Basophils % Sodium 140 Potassium 3.9 Chloride 103 Carbon Dioxide 29 Anion Gap 8 BUN 15 D Creatinine 1.0 POC Glucometer 287 Random Glucose 179 H Calcium 9.1 Random Vancomycin Active Medications Generic Name Dose Route Start Last Admin Trade Name Freq PRN Reason Stop Dose Admin Acetaminophen 650 mg 03/27/17 04:18 Tylenol - PO Q6H PRN FEVER OR PAIN Amlodipine Besylate 10 mg 03/27/17 10:00 03/29/17 09:38 Norvasc - PO 10 mg DAILY [facility] Administration Atorvastatin Calcium 20 mg 03/27/17 22:00 03/28/17 22:07 Lipitor - PO 20 mg HS [facility] Administration Heparin Sodium (Porcine) 5,000 unit 03/27/17 14:00 03/29/17 14:07 Heparin - SQ 5,000 unit TID [facility] Administration Hydrochlorothiazide 25 mg 03/29/17 22:00 Hctz - PO BID [facility] Vancomycin HCl 1,250 mg/ 250 mls @ 166.667 mls/hr 03/28/17 10:00 03/29/17 09:38 Dextrose IVPB 166.667 mls/hr DAILY [facility] Administration Protocol Piperacillin Sod/Tazobactam 50 mls @ 100 mls/hr 03/27/17 18:00 03/29/17 09:38 Sod 3.375 gm/ Dextrose IVPB 100 mls/hr Q8H-IV [facility] Administration Protocol Insulin Aspart 1 vial 03/27/17 11:00 03/29/17 12:06 Novolog Vial Sliding Scale - SQ 6 units [facility] Administration Protocol Insulin Detemir 37 units 03/29/17 14:34 Levemir Vial SQ AM [facility] Insulin Detemir 37 units 03/29/17 14:36 Levemir Vial SQ HS [facility] Lisinopril 40 mg 03/29/17 14:45 03/29/17 15:14 Prinivil PO 40 mg DAILY [facility] Administration Mupirocin 1 applic 03/28/17 22:00 03/29/17 14:08 Bactroban 2% Ointment - TP 1 applic BID [facility] Administration ASSESSMENT/PLAN: 82F hx of HTN and IDDM presenting with acute left 4th distal toe pain, found to have hypertensive urgency of 190/67 and a left 4th toe ruptured abscess complicated by osteomyelitis, currently being treated with vancomycin and zosyn , awaiting cultures and sensitivities. #left 4th distal toe abscess complicated by osteomyelitis -MRI foot: osteomyelitis -ID on board, Dr. Pennington, recs appreciated -continue zosyn and vancomycin (day 3) for now -podiatry on board, appreciated recs, will f/u new wound cx (03/28). continue bactroban BID. per his note, pt and family are considering partial amputation. F /u vascular studies, consider vascular consult. -wound cx (03/27): growing staph coag negative, f/u sensitivities -APAP for pain or temp #HTN -repeat BMP shows stable creatinine -lisinopril 40mg qd and HCTZ 25mg started -monitor BP. If low, will d/c amlodipine. #IDDM -ISS, BGM ACHS -a1c of 7.3 -BGMs of 193-271, likely high 2/2 infection -increased levemir to 37U BID #HLD -continue atorvastatin 20mg qd #FEN/PPx -no more fluids -electrolytes wnl -diabetic diet -no GI ppx -heparin 5,000U TID -Mo Chadwick MD PGY1 Visit type - Emergency Visit Emergency Visit: Yes ED Registration Date: 03/27/17 Care time: The patient presented to the Emergency Department on the above date and was hospitalized for further evaluation of their emergent condition. - New Patient This patient is new to me today: No - Critical Care Critical Care patient: No - Discharge Referral Referred to [facility] Med P.C.: No
--- NOTE | 2017-03-29 18:38 | PN ---
Teaching Attending Note Name of Resident: Mo Chadwick ATTENDING PHYSICIAN STATEMENT I saw and evaluated the patient. I reviewed the resident's note and discussed the case with the resident. I agree with the resident's findings and plan as documented. SUBJECTIVE: no fever or chills , has no pain in foot . no SOB OBJECTIVE: NAD, MMM, No JVD CV: RRR, 2/6 SM at RUSB and LUSB Lungs: no crackles , clear lungs Abd: obese , soft, NT, ND , nl BS Ext: no edema over legs. L foot with a wound on the plantar surface of 4th tow. when squeezed pus came out. TTP. DP 2+ bl and PT 2+ b/l Assessment/Plan: 82 y/o pleasant lady with h/o HTN and IDDM who presented with a draining wound on L 4th toe. She was found to have infected wound with abscess. 1- L 4th toe infected wound with abscess formation and OM - Follow blood cx and final results of wound cx - cont vanco and zosyn - vanco trough this Am was low . increase vanco from 1.25 g daily to 1 g q12h - second debridment done today due to persistent purulent drainage . - family considering amputation . - US doppler done . will follow results to decide the need fro vascular help 2- HTN urgency. resolved . BP needs more control cont Norvasc ( added here) - resume lisinopril and HCTZ as renal function is stable - if BP is too low , can decrease norvasc dose 3- FRANKIE:resolved off IVF . monitor 4- IDDM : - increase levemir to 37 BID - Cont SSI 5- DVT PX : Heparin sq HLOC due to continued need for Abx and due to possible amputation. when ready , family want to cont Abx at home ( if IV abx are indicated )
[2017-03-29] MEDS: HYDROCHLOROTHIAZIDE 25 MG TABLET (FP) PO SCH (21:49)
[2017-03-29] MEDS: ATORVASTATIN CA 20 MG TABLET (FP) PO SCH (21:52)
[2017-03-29] MEDS ORDERED: VANCOMYCIN 1,000 MG in DEXTROSE 5%-WATER - 250 ML IVPB ONE (22:00)
[2017-03-30] MEDS ORDERED: PIPERACILLIN/TAZOBACTAM 3.375 GM VIAL IVPB ONE ×3 (00:33→17:15)
[2017-03-30] MEDS ORDERED: DEXTROSE 5%-WATER - 50 ML IVPB ONE ×2 (00:33→10:08)
[2017-03-30] MEDS: PIPERACILLIN/TAZOB 3.375 GM 3.375 GM in DEXTROSE 5%-WATER - 50 ML IVPB SCH ×3 (02:08→18:07)
[2017-03-30 06:50] LABS: EOSINOPHIL 3.5 % (0-4.5); MCH 25.6 pg (25.7-33.7); MCHC 31.9 g/dl (32.0-36.0); MEAN CELL VOLUME 80.1 fl (80-96); MEAN PLT VOLUME 10.5 fl (7.5-11.1); NEUTROPHILS 62.3 % (42.8-82.8); PLATELET COUNT 202 K/MM3 (134-434); RDW 15.8 % (11.6-15.6); WHITE BLOOD COUNT 8.9 K/mm3 (4.0-10.0)
[2017-03-30] MEDS: INSULIN DETEMIR 100 UNITS/ML MDV SQ SCH ×2 (06:50→22:12)
[2017-03-30] MEDS: INSULIN SLIDING SCALE (NOVOLOG) 1 VIAL SQ SCH ×3 (06:51→17:37)
[2017-03-30] MEDS: HEPARIN NA (PORCINE) 5,000 UNITS/ML 1ML VIAL SQ SCH ×3 (06:51→22:12)
[2017-03-30 07:26] LABS: ANION GAP 9 (8-16); CO2 27 mmol/L (21-32); GLUCOSE,RANDOM 217 mg/dL (74-106)
[2017-03-30 07:28] LABS: CREATININE 1.1 mg/dL (0.55-1.02)
[2017-03-30] MEDS: MUPIROCIN 2% TOPICAL OINTMENT 22 GM TUBE TP SCH ×2 (10:11→22:11)
[2017-03-30] MEDS: HYDROCHLOROTHIAZIDE 25 MG TABLET (FP) PO SCH ×2 (10:12→22:12)
[2017-03-30] MEDS: LISINOPRIL 20 MG TABLET (FP) PO SCH (10:14)
[2017-03-30] MEDS: amLODIPine BESYLATE 10 MG TABLET (FP) PO SCH (10:14)
--- NOTE | 2017-03-30 11:20 | CONSULT ---
Consult - Alcohol/Substance Use Hx Alcohol Use: No - Smoking History Smoking history: Never smoked Have you smoked in the past 12 months: No Home Medications - Allergies Allergies/Adverse Reactions: Allergies Allergy/AdvReac Type Severity Reaction Status Date / Time No Known Allergies Allergy Verified 03/27/17 00:14 - Home Medications Home Medications: Ambulatory Orders Acetaminophen [Tylenol .Extra-Strength -] PRN 03/27/17 Atorvastatin Calcium 20 mg PO 03/27/17 Hydrochlorothiazide 25 mg PO BID 03/27/17 Lisinopril [Prinivil -] 40 mg PO DAILY 03/27/17 Vitamin D3 03/27/17 Physical Exam Vital Signs: Vital Signs Temperature 97.7 F 03/30/17 08:35 Pulse Rate 63 03/30/17 08:35 Respiratory Rate 18 03/30/17 08:35 Blood Pressure 147/66 03/30/17 08:35 O2 Sat by Pulse Oximetry (%) 98 03/29/17 21:00 Labs: CBC, BMP 03/30/17 06:15 03/30/17 06:15 Assessment/Plan Vascular surgery Left fouth toe osteomyeltis. POdiatry to do partial amputation. Pt seen and examined. No palapbel dp or pt pulse. CTA ordered to check runoff. might need angiogram. Juan Francisco Ferrell DO
--- NOTE | 2017-03-30 11:32 | PN ---
Progress Note (short form) - Note Progress Note: Podiatry Brief Note: L 4th digit osteomyelitis, distal phalanx. Arterial duplex suggestive of SFA disease. Will need CTA and potential angio for revascularization prior to partial amputation. Will be on standby. Will continue local wound care. Natasha Ricketts DPM
--- NOTE | 2017-03-30 13:04 | PN ---
Teaching Attending Note Name of Resident: Mo Chadwick ATTENDING PHYSICIAN STATEMENT I saw and evaluated the patient. I reviewed the resident's note and discussed the case with the resident. I agree with the resident's findings and plan as documented. SUBJECTIVE: Patient is comfortable with no acute distress. OBJECTIVE: Vital Signs Temperature 97.7 F 03/30/17 08:35 Pulse Rate 63 03/30/17 08:35 Respiratory Rate 18 03/30/17 08:35 Blood Pressure 147/66 03/30/17 08:35 O2 Sat by Pulse Oximetry (%) 98 03/29/17 21:00 CBCD WBC 8.9 K/mm3 (4.0-10.0) 03/30/17 06:15 RBC 5.09 M/mm3 (3.60-5.2) 03/30/17 06:15 Hgb 13.0 GM/dL (10.7-15.3) 03/30/17 06:15 Hct 40.8 % (32.4-45.2) 03/30/17 06:15 MCV 80.1 fl (80-96) 03/30/17 06:15 MCHC 31.9 g/dl (32.0-36.0) L 03/30/17 06:15 RDW 15.8 % (11.6-15.6) H 03/30/17 06:15 Plt Count 202 K/MM3 (134-434) 03/30/17 06:15 MPV 10.5 fl (7.5-11.1) 03/30/17 06:15 CMP Sodium 138 mmol/L (136-145) 03/30/17 06:15 Potassium 3.9 mmol/L (3.5-5.1) 03/30/17 06:15 Chloride 102 mmol/L (98-107) 03/30/17 06:15 Carbon Dioxide 27 mmol/L (21-32) 03/30/17 06:15 Anion Gap 9 (8-16) 03/30/17 06:15 BUN 14 mg/dL (7-18) 03/30/17 06:15 Creatinine 1.1 mg/dL (0.55-1.02) H 03/30/17 06:15 Creat Clearance w eGFR 47.67 (>60) 03/27/17 00:40 Random Glucose 217 mg/dL (74-106) H D 03/30/17 06:15 Calcium 9.0 mg/dL (8.5-10.1) 03/30/17 06:15 Total Bilirubin 0.3 mg/dL (0.2-1.0) 03/27/17 00:40 AST 12 U/L (15-37) L 03/27/17 00:40 ALT 20 U/L (12-78) 03/27/17 00:40 Alkaline Phosphatase 156 U/L (45-117) H 03/27/17 00:40 Total Protein 7.4 g/dl (6.4-8.2) 03/27/17 00:40 Albumin 3.0 g/dl (3.4-5.0) L 03/27/17 00:40 Current Medications Generic Name Dose Route Start Last Admin Trade Name Freq PRN Reason Stop Dose Admin Acetaminophen 650 mg 03/27/17 04:18 Tylenol - PO Q6H PRN FEVER OR PAIN Amlodipine Besylate 10 mg 03/27/17 10:00 03/30/17 10:14 Norvasc - PO 10 mg DAILY [facility] Administration Atorvastatin Calcium 20 mg 03/27/17 22:00 03/29/17 21:52 Lipitor - PO 20 mg HS [facility] Administration Heparin Sodium (Porcine) 5,000 unit 03/27/17 14:00 03/30/17 06:51 Heparin - SQ 5,000 unit TID [facility] Administration Hydrochlorothiazide 25 mg 03/29/17 22:00 03/30/17 10:12 Hctz - PO 25 mg BID [facility] Administration Piperacillin Sod/Tazobactam 50 mls @ 100 mls/hr 03/27/17 18:00 03/30/17 10:15 Sod 3.375 gm/ Dextrose IVPB 100 mls/hr Q8H-IV [facility] Administration Protocol Vancomycin HCl 1,000 mg/ 250 mls @ 166.667 mls/hr 03/29/17 22:00 Dextrose IVPB Q12H [facility] Protocol Insulin Aspart 1 vial 03/27/17 11:00 03/30/17 06:51 Novolog Vial Sliding Scale - SQ 4 units TIDAC [facility] Administration Protocol Insulin Detemir 37 units 03/29/17 14:34 03/30/17 06:50 Levemir Vial SQ 37 units AM [facility] Administration Insulin Detemir 37 units 03/29/17 14:36 03/29/17 21:51 Levemir Vial SQ 37 units HS [facility] Administration Lisinopril 40 mg 03/29/17 14:45 03/30/17 10:14 Prinivil PO 40 mg DAILY [facility] Administration Mupirocin 1 applic 03/28/17 22:00 03/30/17 10:11 Bactroban 2% Ointment - TP 1 applic BID [facility] Administration Home Medications Medication Instructions Recorded Acetaminophen [Tylenol PRN 03/27/17 .Extra-Strength -] Atorvastatin Calcium 20 mg PO 03/27/17 Hydrochlorothiazide 25 mg PO BID 03/27/17 Lisinopril [Prinivil -] 40 mg PO DAILY 03/27/17 Vitamin D3 03/27/17 PE: Extremities: left toe positive for an purulent discharge minimal with osteo. ASSESSMENT AND PLAN: 82 y/o pleasant lady with h/o HTN and IDDM who presented with a draining wound on L 4th toe. She was found to have infected wound with abscess. # Left 4th toe infected wound with abscess formation and OM on IV antibiotic vanco and zosyn, possible amputation of left 4th toe. US doppler done . # HTN urgency. resolved . cont Norvasc , lisinopril and HCTZ # FRANKIE:resolved s/p IVF . monitor # IDDM increase levemir to 37 BID , SSI DVT PX : Heparin sq
[2017-03-30] MEDS ORDERED: INSULIN (NOVOLOG) ASPART 100 UNITS/ML 10ML VIAL ONE ×2 (13:58→17:36)
--- NOTE | 2017-03-30 14:55 | PN ---
Progress Note, Physician History of Present Illness: stable no issues daughter in room d/w daughter in detail - Current Medication List Current Medications: Active Medications Acetaminophen (Tylenol -) 650 mg PO Q6H PRN PRN Reason: FEVER OR PAIN Amlodipine Besylate (Norvasc -) 10 mg PO DAILY [facility] Last Admin: 03/30/17 10:14 Dose: 10 mg Atorvastatin Calcium (Lipitor -) 20 mg PO HS [facility] Last Admin: 03/29/17 21:52 Dose: 20 mg Heparin Sodium (Porcine) (Heparin -) 5,000 unit SQ TID [facility] Last Admin: 03/30/17 06:51 Dose: 5,000 unit Hydrochlorothiazide (Hctz -) 25 mg PO BID [facility] Last Admin: 03/30/17 10:12 Dose: 25 mg Piperacillin Sod/Tazobactam (Sod 3.375 gm/ Dextrose) 50 mls @ 100 mls/hr IVPB Q8H-IV [facility] PRN Reason: Protocol Last Admin: 03/30/17 10:15 Dose: 100 mls/hr Vancomycin HCl 1,000 mg/ (Dextrose) 250 mls @ 166.667 mls/hr IVPB Q12H [facility] PRN Reason: Protocol Insulin Aspart (Novolog Vial Sliding Scale -) 1 vial SQ TIDAC [facility] PRN Reason: Protocol Last Admin: 03/30/17 13:49 Dose: 6 units Insulin Detemir (Levemir Vial) 37 units SQ AM [facility] Last Admin: 03/30/17 06:50 Dose: 37 units Insulin Detemir (Levemir Vial) 37 units SQ HS [facility] Last Admin: 03/29/17 21:51 Dose: 37 units Lisinopril (Prinivil) 40 mg PO DAILY [facility] Last Admin: 03/30/17 10:14 Dose: 40 mg Mupirocin (Bactroban 2% Ointment -) 1 applic TP BID [facility] Last Admin: 03/30/17 10:11 Dose: 1 applic - Objective Vital Signs: Vital Signs Temperature 97.7 F 03/30/17 08:35 Pulse Rate 63 03/30/17 08:35 Respiratory Rate 18 03/30/17 08:35 Blood Pressure 147/66 03/30/17 08:35 O2 Sat by Pulse Oximetry (%) 98 03/29/17 21:00 Constitutional: Yes: No Distress, Calm Cardiovascular: Yes: Regular Rate and Rhythm Respiratory: Yes: Regular, CTA Bilaterally Gastrointestinal: Yes: Normal Bowel Sounds, Soft Musculoskeletal: Yes: Other Extremities: Yes: Other Wound/Incision: Yes: Other Neurological: Yes: Alert, Oriented Psychiatric: Yes: Alert, Oriented Labs: CBC, BMP 03/30/17 06:15 03/30/17 06:15 Assessment/Plan #left 4th distal toe ruptured blister and plantar ulcer osteomylitis #IDDM #HLD plan continue abx await for cx taken by podiatry rest as per primary team vascular note noted workup as per vascular vanco level noted increased vanco dose
[2017-03-30] MEDS: VANCOMYCIN 1,000 MG in DEXTROSE 5%-WATER - 250 ML IVPB SCH (15:12)
--- NOTE | 2017-03-30 16:19 | PN ---
Physical Exam: SUBJECTIVE: Patient seen and examined. No acute events overnight, no pain in toe. OBJECTIVE: Vital Signs Period Temp Pulse Resp BP Sys/Cormier Pulse Ox Last 24 Hr 97.7 F-99.6 F 59-76 18-20 147-162/66-88 98 GENERAL: The patient is awake, alert, and fully oriented, in no acute distress. HEAD: Normal with no signs of trauma. EYES: PERRL, extraocular movements intact, sclera anicteric, conjunctiva clear. No ptosis. ENT: Ears normal, nares patent, oropharynx clear without exudates, moist mucous membranes. NECK: Trachea midline, full range of motion, supple. LUNGS: Breath sounds equal, clear to auscultation bilaterally, no wheezes, no crackles, no accessory muscle use. HEART: Regular rate and rhythm, S1, S2 without murmur, rub or gallop. ABDOMEN: Soft, nontender, nondistended, normoactive bowel sounds, no guarding, no rebound, no hepatosplenomegaly, no masses. EXTREMITIES: left foot in bandage and cushion boot placed by podiatry. Left 4th distal phalanx shows a ruptured abscess still draining yellow pus upon expression. The entire toe is discolored, sensation is intact, motor function is intact, mildly tender to palpation. NEUROLOGICAL: Cranial nerves II through XII grossly intact. Normal speech, gait not observed. PSYCH: Normal mood, normal affect. SKIN: Warm, dry, normal turgor, no rashes or lesions noted Laboratory Results - last 24 hr 03/29/17 03/29/17 03/30/17 16:59 20:57 06:13 WBC RBC Hgb Hct MCV MCH MCHC RDW Plt Count MPV Neutrophils % Lymphocytes % Monocytes % Eosinophils % Basophils % Sodium Potassium Chloride Carbon Dioxide Anion Gap BUN Creatinine POC Glucometer 230 371 218 Random Glucose Calcium 03/30/17 03/30/17 03/30/17 06:15 06:15 11:26 WBC 8.9 RBC 5.09 Hgb 13.0 Hct 40.8 MCV 80.1 MCH 25.6 L MCHC 31.9 L RDW 15.8 H Plt Count 202 MPV 10.5 Neutrophils % 62.3 Lymphocytes % 24.4 D Monocytes % 8.8 Eosinophils % 3.5 Basophils % 1.0 Sodium 138 Potassium 3.9 Chloride 102 Carbon Dioxide 27 Anion Gap 9 BUN 14 Creatinine 1.1 H POC Glucometer 280 Random Glucose 217 H D Calcium 9.0 Active Medications Generic Name Dose Route Start Last Admin Trade Name Jhon PRN Reason Stop Dose Admin Acetaminophen 650 mg 03/27/17 04:18 Tylenol - PO Q6H PRN FEVER OR PAIN Amlodipine Besylate 10 mg 03/27/17 10:00 03/30/17 10:14 Norvasc - PO 10 mg DAILY [facility] Administration Atorvastatin Calcium 20 mg 03/27/17 22:00 03/29/17 21:52 Lipitor - PO 20 mg HS [facility] Administration Heparin Sodium (Porcine) 5,000 unit 03/27/17 14:00 03/30/17 14:54 Heparin - SQ 5,000 unit TID [facility] Administration Hydrochlorothiazide 25 mg 03/29/17 22:00 03/30/17 10:12 Hctz - PO 25 mg BID [facility] Administration Piperacillin Sod/Tazobactam 50 mls @ 100 mls/hr 03/27/17 18:00 03/30/17 10:15 Sod 3.375 gm/ Dextrose IVPB 100 mls/hr Q8H-IV [facility] Administration Protocol Vancomycin HCl 1,500 mg/ 500 mls @ 250 mls/hr 03/30/17 16:00 Dextrose IVPB DAILY@1600 [facility] Protocol Insulin Aspart 1 vial 03/27/17 11:00 03/30/17 13:49 Novolog Vial Sliding Scale - SQ 6 units TIDAC [facility] Administration Protocol Insulin Detemir 37 units 03/29/17 14:34 03/30/17 06:50 Levemir Vial SQ 37 units AM [facility] Administration Insulin Detemir 37 units 03/29/17 14:36 03/29/17 21:51 Levemir Vial SQ 37 units HS [facility] Administration Lisinopril 40 mg 03/29/17 14:45 03/30/17 10:14 Prinivil PO 40 mg DAILY [facility] Administration Mupirocin 1 applic 03/28/17 22:00 03/30/17 10:11 Bactroban 2% Ointment - TP 1 applic BID [facility] Administration Duplex b/l LE: critical stenosis b/w the SFA and popliteal artery ASSESSMENT/PLAN: 82F hx of HTN and IDDM presenting with acute left 4th distal toe pain, found to have hypertensive urgency of 190/67 and a left 4th toe ruptured abscess complicated by osteomyelitis, currently being treated with vancomycin and zosyn , awaiting cultures and sensitivities. #left 4th distal toe abscess complicated by osteomyelitis -MRI foot: osteomyelitis -ID on board, Dr. Pennington, recs appreciated -continue zosyn and vancomycin (day 4) for now. vanc dose changed to 1500mg qd given vanc trough. -podiatry on board, appreciated recs, will f/u new wound cx (03/28). continue bactroban BID. pt to get partial amputation pending vascular workup. -wound cx (03/27): growing staph coag negative, f/u sensitivities -APAP for pain or temp -vascular on board, Dr. Ferrell. recs appreciated. f/u CTA to check runoff, possible angiogram #HTN -continue lisinopril 40mg qd and HCTZ 25mg -monitor BP. If low, will d/c amlodipine. #IDDM -ISS, BGM ACHS -a1c of 7.3 -continue levemir to 37U BID #HLD -continue atorvastatin 20mg qd #FEN/PPx -no more fluids -electrolytes wnl -diabetic diet -no GI ppx -heparin 5,000U TID -Mo Chadwick MD PGY1 Visit type - Emergency Visit Emergency Visit: Yes ED Registration Date: 03/27/17 Care time: The patient presented to the Emergency Department on the above date and was hospitalized for further evaluation of their emergent condition. - New Patient This patient is new to me today: No - Critical Care Critical Care patient: No
[2017-03-30] MEDS ORDERED: PT OWN MED DRAWER 7, Y5N ONE (17:16)
[2017-03-30] MEDS: VANCOMYCIN 1,500 MG in DEXTROSE 5%-WATER - 500 ML IVPB SCH (17:27)
[2017-03-30] MEDS: ATORVASTATIN CA 20 MG TABLET (FP) PO SCH (22:12)
[2017-03-31] MEDS ORDERED: PIPERACILLIN/TAZOBACTAM 3.375 GM VIAL IVPB ONE ×2 (00:45→11:10)
[2017-03-31] MEDS ORDERED: DEXTROSE 5%-WATER - 50 ML IVPB ONE ×2 (00:46→11:10)
[2017-03-31] MEDS: PIPERACILLIN/TAZOB 3.375 GM 3.375 GM in DEXTROSE 5%-WATER - 50 ML IVPB SCH ×3 (01:36→17:16)
[2017-03-31] MEDS: INSULIN DETEMIR 100 UNITS/ML MDV SQ SCH ×2 (06:21→21:35)
[2017-03-31] MEDS: HEPARIN NA (PORCINE) 5,000 UNITS/ML 1ML VIAL SQ SCH ×3 (06:21→21:34)
[2017-03-31] MEDS: INSULIN SLIDING SCALE (NOVOLOG) 1 VIAL SQ SCH ×3 (06:23→17:16)
[2017-03-31 07:51] LABS: CHOLESTEROL 147 mg/dL (50-200)
--- NOTE | 2017-03-31 09:40 | PN ---
Progress Note (short form) - Note Progress Note: Vascular Surgery Pt's CTA reviewed. 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 Will need angiogram prior to partial toe amputation. Will do jonna afternoon. NPO past midnight. Juan Francisco Ferrell DO
[2017-03-31] MEDS: HYDROCHLOROTHIAZIDE 25 MG TABLET (FP) PO SCH ×2 (11:12→21:34)
[2017-03-31] MEDS: LISINOPRIL 20 MG TABLET (FP) PO SCH (11:12)
[2017-03-31] MEDS: amLODIPine BESYLATE 10 MG TABLET (FP) PO SCH (11:12)
[2017-03-31] MEDS ORDERED: MUPIROCIN 2% TOPICAL OINTMENT 22 GM TUBE TP SCH (11:45)
--- NOTE | 2017-03-31 11:46 | PN ---
Progress Note (short form) - Note Progress Note: Podiatry Brief Note: L 4th digit ulcer with osteomyelitis. Treatment options reviewed at length with patient and her daughter, and I recommended partial toe amputation 4th digit. Patient has extensive tibial disease requiring angiogram with Dr. Ferrell. Once vascular cleared, will proceed with partial toe amputation Tuesday. Natasha Ricketts DPM
[2017-03-31] MEDS: MUPIROCIN 2% TOPICAL OINTMENT 22 GM TUBE TP SCH (12:03)
--- NOTE | 2017-03-31 13:52 | PN ---
Progress Note, Physician History of Present Illness: stable no issues daughter in room podiatry and vascular note noted - Current Medication List Current Medications: Active Medications Acetaminophen (Tylenol -) 650 mg PO Q6H PRN PRN Reason: FEVER OR PAIN Amlodipine Besylate (Norvasc -) 10 mg PO DAILY [facility] Last Admin: 03/31/17 11:12 Dose: 10 mg Atorvastatin Calcium (Lipitor -) 20 mg PO HS [facility] Last Admin: 03/30/17 22:12 Dose: 20 mg Heparin Sodium (Porcine) (Heparin -) 5,000 unit SQ TID [facility] Last Admin: 03/31/17 06:21 Dose: 5,000 unit Hydrochlorothiazide (Hctz -) 25 mg PO BID [facility] Last Admin: 03/31/17 11:12 Dose: 25 mg Piperacillin Sod/Tazobactam (Sod 3.375 gm/ Dextrose) 50 mls @ 100 mls/hr IVPB Q8H-IV [facility] PRN Reason: Protocol Last Admin: 03/31/17 11:12 Dose: 100 mls/hr Vancomycin HCl 1,500 mg/ (Dextrose) 500 mls @ 250 mls/hr IVPB DAILY@1600 [facility] PRN Reason: Protocol Last Admin: 03/30/17 17:27 Dose: 250 mls/hr Insulin Aspart (Novolog Vial Sliding Scale -) 1 vial SQ TIDAC [facility] PRN Reason: Protocol Last Admin: 03/31/17 12:09 Dose: 6 units Insulin Detemir (Levemir Vial) 37 units SQ AM [facility] Last Admin: 03/31/17 06:21 Dose: 37 units Insulin Detemir (Levemir Vial) 37 units SQ HS [facility] Last Admin: 03/30/17 22:12 Dose: 37 units Lisinopril (Prinivil) 40 mg PO DAILY [facility] Last Admin: 03/31/17 11:12 Dose: 40 mg Mupirocin (Bactroban 2% Ointment -) 1 applic TP Q48H [facility] Last Admin: 03/31/17 12:09 Dose: 1 applic - Objective Vital Signs: Vital Signs Temperature 98.4 F 03/31/17 09:06 Pulse Rate 84 03/31/17 09:06 Respiratory Rate 18 03/31/17 09:06 Blood Pressure 148/74 03/31/17 09:06 O2 Sat by Pulse Oximetry (%) 98 03/30/17 21:00 Constitutional: Yes: No Distress Cardiovascular: Yes: Regular Rate and Rhythm Respiratory: Yes: Regular, CTA Bilaterally Gastrointestinal: Yes: Normal Bowel Sounds, Soft Musculoskeletal: Yes: WNL Extremities: Yes: Other Wound/Incision: Yes: Other Labs: CBC, BMP 03/30/17 06:15 03/30/17 06:15 - ....Imaging Cat Scan: Report Reviewed, Image Reviewed Assessment/Plan #left 4th distal toe ruptured blister and plantar ulcer osteomylitis #IDDM #HLD plan continue abx wound cx still pending one organism await for vascular and podiatry rest as per primary team
--- NOTE | 2017-03-31 16:08 | PN ---
Physical Exam: SUBJECTIVE: Patient seen and examined. No acute events overnight. Patient offers no new complaints. She denies abdominal pain, headache, dizziness, nausea , sob, and chest pain. OBJECTIVE: Vital Signs Period Temp Pulse Resp BP Sys/Cormier Pulse Ox Last 24 Hr 97.4 F-99.2 F 61-84 16-20 125-151/74-82 98 GENERAL: The patient is awake, alert, and fully oriented, in no acute distress. HEAD: Normal with no signs of trauma. EYES: PERRL, extraocular movements intact, sclera anicteric, conjunctiva clear. No ptosis. ENT: Ears normal, nares patent, oropharynx clear without exudates, moist mucous membranes. NECK: Trachea midline, full range of motion, supple. LUNGS: Breath sounds equal, clear to auscultation bilaterally, no wheezes, no crackles, no accessory muscle use. HEART: Regular rate and rhythm, S1, S2 without murmur, rub or gallop. ABDOMEN: Soft, nontender, nondistended, normoactive bowel sounds, no guarding, no rebound, no hepatosplenomegaly, no masses. EXTREMITIES: left foot in bandage and cushion boot placed by podiatry. Left 4th distal phalanx shows a ruptured abscess still draining yellow pus upon expression. The entire toe is discolored, sensation is intact, motor function is intact, mildly tender to palpation. NEUROLOGICAL: Cranial nerves II through XII grossly intact. Normal speech, gait not observed. PSYCH: Normal mood, normal affect. SKIN: Warm, dry, normal turgor, no rashes or lesions noted Laboratory Results - last 24 hr 03/30/17 03/30/17 03/31/17 17:34 21:23 06:19 POC Glucometer 190 322 176 Triglycerides Cholesterol Total LDL Cholesterol HDL Cholesterol 03/31/17 03/31/17 06:25 11:26 POC Glucometer 277 Triglycerides 149 Cholesterol 147 Total LDL Cholesterol 77 HDL Cholesterol 54 Active Medications Generic Name Dose Route Start Last Admin Trade Name Freq PRN Reason Stop Dose Admin Acetaminophen 650 mg 03/27/17 04:18 Tylenol - PO Q6H PRN FEVER OR PAIN Amlodipine Besylate 10 mg 03/27/17 10:00 03/31/17 11:12 Norvasc - PO 10 mg DAILY [facility] Administration Atorvastatin Calcium 20 mg 03/27/17 22:00 03/30/17 22:12 Lipitor - PO 20 mg HS [facility] Administration Heparin Sodium (Porcine) 5,000 unit 03/27/17 14:00 03/31/17 14:50 Heparin - SQ 5,000 unit TID [facility] Administration Hydrochlorothiazide 25 mg 03/29/17 22:00 03/31/17 11:12 Hctz - PO 25 mg BID [facility] Administration Piperacillin Sod/Tazobactam 50 mls @ 100 mls/hr 03/27/17 18:00 03/31/17 11:12 Sod 3.375 gm/ Dextrose IVPB 100 mls/hr Q8H-IV [facility] Administration Protocol Vancomycin HCl 1,500 mg/ 500 mls @ 250 mls/hr 03/30/17 16:00 03/30/17 17:27 Dextrose IVPB 250 mls/hr DAILY@1600 [facility] Administration Protocol Insulin Aspart 1 vial 03/27/17 11:00 03/31/17 12:09 Novolog Vial Sliding Scale - SQ 6 units TIDAC [facility] 234 BEDS AT [facility] Administration Protocol Insulin Detemir 37 units 03/29/17 14:34 03/31/17 06:21 Levemir Vial SQ 37 units AM [facility] Administration Insulin Detemir 37 units 03/29/17 14:36 03/30/17 22:12 Levemir Vial SQ 37 units HS [facility] Administration Lisinopril 40 mg 03/29/17 14:45 03/31/17 11:12 Prinivil PO 40 mg DAILY [facility] Administration Mupirocin 1 applic 03/31/17 11:45 03/31/17 12:09 Bactroban 2% Ointment - TP 1 applic Q48H [facility] Administration ASSESSMENT/PLAN: 82F hx of HTN and IDDM presenting with acute left 4th distal toe pain, found to have hypertensive urgency of 190/67 and a left 4th toe ruptured abscess complicated by osteomyelitis, currently being treated with vancomycin and zosyn. #Left 4th distal toe abscess complicated by osteomyelitis MRI foot: osteomyelitis -ID on board, Dr. Pennington, recs appreciated -continue zosyn and vancomycin (day 5) -podiatry on board, appreciated recs, will f/u new wound cx (03/28) - continue bactroban BID. 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 If low, will d/c amlodipine. #IDDM -ISS, BGM ACHS -a1c of 7.3 -continue levemir to 37U BID #HLD -continue atorvastatin 20mg qd #FEN -No IV fluids -WNL -Diabetic diet #PPX: Heparin SQ Visit type - Emergency Visit Emergency Visit: Yes ED Registration Date: 03/27/17 Care time: The patient presented to the Emergency Department on the above date and was hospitalized for further evaluation of their emergent condition. - New Patient This patient is new to me today: Yes Date on this admission: 03/31/17 - Critical Care Critical Care patient: No
[2017-03-31] MEDS ORDERED: INSULIN (NOVOLOG) ASPART 100 UNITS/ML 10ML VIAL ONE (17:11)
[2017-03-31] MEDS: VANCOMYCIN 1,500 MG in DEXTROSE 5%-WATER - 500 ML IVPB SCH (17:12)
--- NOTE | 2017-03-31 18:26 | PN ---
Teaching Attending Note Name of Resident: Henry Giron ATTENDING PHYSICIAN STATEMENT I saw and evaluated the patient. I reviewed the resident's note and discussed the case with the resident. I agree with the resident's findings and plan as documented. SUBJECTIVE: Comfortable with no acute distress. OBJECTIVE: Vital Signs Temperature 97.5 F L 03/31/17 14:45 Pulse Rate 67 03/31/17 14:45 Respiratory Rate 18 03/31/17 14:45 Blood Pressure 150/80 03/31/17 14:45 O2 Sat by Pulse Oximetry (%) 98 03/31/17 09:00 CBCD WBC 8.9 K/mm3 (4.0-10.0) 03/30/17 06:15 RBC 5.09 M/mm3 (3.60-5.2) 03/30/17 06:15 Hgb 13.0 GM/dL (10.7-15.3) 03/30/17 06:15 Hct 40.8 % (32.4-45.2) 03/30/17 06:15 MCV 80.1 fl (80-96) 03/30/17 06:15 MCHC 31.9 g/dl (32.0-36.0) L 03/30/17 06:15 RDW 15.8 % (11.6-15.6) H 03/30/17 06:15 Plt Count 202 K/MM3 (134-434) 03/30/17 06:15 MPV 10.5 fl (7.5-11.1) 03/30/17 06:15 CMP Sodium 138 mmol/L (136-145) 03/30/17 06:15 Potassium 3.9 mmol/L (3.5-5.1) 03/30/17 06:15 Chloride 102 mmol/L (98-107) 03/30/17 06:15 Carbon Dioxide 27 mmol/L (21-32) 03/30/17 06:15 Anion Gap 9 (8-16) 03/30/17 06:15 BUN 14 mg/dL (7-18) 03/30/17 06:15 Creatinine 1.1 mg/dL (0.55-1.02) H 03/30/17 06:15 Creat Clearance w eGFR 47.67 (>60) 03/27/17 00:40 Random Glucose 217 mg/dL (74-106) H D 03/30/17 06:15 Calcium 9.0 mg/dL (8.5-10.1) 03/30/17 06:15 Total Bilirubin 0.3 mg/dL (0.2-1.0) 03/27/17 00:40 AST 12 U/L (15-37) L 03/27/17 00:40 ALT 20 U/L (12-78) 03/27/17 00:40 Alkaline Phosphatase 156 U/L (45-117) H 03/27/17 00:40 Total Protein 7.4 g/dl (6.4-8.2) 03/27/17 00:40 Albumin 3.0 g/dl (3.4-5.0) L 03/27/17 00:40 Current Medications Generic Name Dose Route Start Last Admin Trade Name Freq PRN Reason Stop Dose Admin Acetaminophen 650 mg 03/27/17 04:18 Tylenol - PO Q6H PRN FEVER OR PAIN Amlodipine Besylate 10 mg 03/27/17 10:00 03/31/17 11:12 Norvasc - PO 10 mg DAILY [facility] Administration Atorvastatin Calcium 20 mg 03/27/17 22:00 03/30/17 22:12 Lipitor - PO 20 mg HS [facility] Administration Heparin Sodium (Porcine) 5,000 unit 03/27/17 14:00 03/31/17 14:50 Heparin - SQ 5,000 unit TID [facility] Administration Hydrochlorothiazide 25 mg 03/29/17 22:00 03/31/17 11:12 Hctz - PO 25 mg BID [facility] Administration Piperacillin Sod/Tazobactam 50 mls @ 100 mls/hr 03/27/17 18:00 03/31/17 17:16 Sod 3.375 gm/ Dextrose IVPB 100 mls/hr Q8H-IV [facility] Administration Protocol Vancomycin HCl 1,500 mg/ 500 mls @ 250 mls/hr 03/30/17 16:00 03/31/17 17:12 Dextrose IVPB 250 mls/hr DAILY@1600 [facility] Administration Protocol Insulin Aspart 1 vial 03/27/17 11:00 03/31/17 17:16 Novolog Vial Sliding Scale - SQ 2 units TIDAC [facility] Administration Protocol Insulin Detemir 37 units 03/29/17 14:34 03/31/17 06:21 Levemir Vial SQ 37 units AM [facility] Administration Insulin Detemir 37 units 03/29/17 14:36 03/30/17 22:12 Levemir Vial SQ 37 units HS [facility] Administration Lisinopril 40 mg 03/29/17 14:45 03/31/17 11:12 Prinivil PO 40 mg DAILY [facility] Administration Mupirocin 1 applic 03/31/17 11:45 03/31/17 12:09 Bactroban 2% Ointment - TP 1 applic Q48H [facility] Administration Home Medications Medication Instructions Recorded Acetaminophen [Tylenol PRN 03/27/17 .Extra-Strength -] Atorvastatin Calcium 20 mg PO 03/27/17 Hydrochlorothiazide 25 mg PO BID 03/27/17 Lisinopril [Prinivil -] 40 mg PO DAILY 03/27/17 Vitamin D3 03/27/17 PE: Left 4th toe osteo rest of PE per resident's note ASSESSMENT AND PLAN: 82 y/o pleasant lady with h/o HTN and IDDM who presented with a draining wound on L 4th toe. She was found to have infected wound with abscess. # Left 4th toe infected wound with minimal discharge and OM on IV antibiotic continue vanco and zosyn, possible amputation of left 4th toe. US doppler done . 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 As per Will need angiogram prior to partial toe amputation. As per Ground Worker eecommendation partial toe amputation 4th digit. Patient has extensive tibial disease requiring angiogram with Dr. Ferrell. Once vascular cleared, will proceed with partial toe amputation Tuesday. # HTN urgency. resolved . cont Norvasc , lisinopril and HCTZ # FRANKIE:resolved s/p IVF . monitor # IDDM increase levemir to 37 BID , SSI DVT PX : Heparin sq
[2017-03-31] MEDS: ATORVASTATIN CA 20 MG TABLET (FP) PO SCH (21:35)
[2017-04-01] MEDS: PIPERACILLIN/TAZOB 3.375 GM 3.375 GM in DEXTROSE 5%-WATER - 50 ML IVPB SCH ×2 (02:40→09:59)
[2017-04-01] MEDS: HEPARIN NA (PORCINE) 5,000 UNITS/ML 1ML VIAL SQ SCH ×3 (06:22→21:46)
[2017-04-01] MEDS ORDERED: INSULIN DETEMIR 100 UNITS/ML MDV SQ ONE (06:26)
[2017-04-01] MEDS: INSULIN SLIDING SCALE (NOVOLOG) 1 VIAL SQ SCH ×3 (06:30→16:51)
[2017-04-01] MEDS ORDERED: PT OWN MED DRAWER 7, Y5N ONE ×2 (09:53→16:41)
[2017-04-01] MEDS: LISINOPRIL 20 MG TABLET (FP) PO SCH (09:58)
[2017-04-01] MEDS: amLODIPine BESYLATE 10 MG TABLET (FP) PO SCH (09:59)
[2017-04-01] MEDS: HYDROCHLOROTHIAZIDE 25 MG TABLET (FP) PO SCH ×2 (09:59→21:45)
--- NOTE | 2017-04-01 13:08 | PN ---
Progress Note, Physician History of Present Illness: stable no issues daughter in room podiatry and vascular note noted - Current Medication List Current Medications: Active Medications Acetaminophen (Tylenol -) 650 mg PO Q6H PRN PRN Reason: FEVER OR PAIN Amlodipine Besylate (Norvasc -) 10 mg PO DAILY [facility] Last Admin: 04/01/17 09:59 Dose: 10 mg Atorvastatin Calcium (Lipitor -) 20 mg PO HS [facility] Last Admin: 03/31/17 21:35 Dose: 20 mg Heparin Sodium (Porcine) (Heparin -) 5,000 unit SQ TID [facility] Last Admin: 04/01/17 06:22 Dose: 5,000 unit Hydrochlorothiazide (Hctz -) 25 mg PO BID [facility] Last Admin: 04/01/17 09:59 Dose: 25 mg Vancomycin HCl 1,500 mg/ (Dextrose) 500 mls @ 250 mls/hr IVPB DAILY@1600 [facility] PRN Reason: Protocol Last Admin: 03/31/17 17:12 Dose: 250 mls/hr Piperacillin/Tazobactam/Dextrose (Zosyn 3.375gm Ivpb (Premix)) 50 mls @ 100 mls /hr IVPB Q8H-IV [facility] PRN Reason: Protocol Stop: 04/03/17 10:29 Insulin Aspart (Novolog Vial Sliding Scale -) 1 vial SQ TIDAC [facility] PRN Reason: Protocol Last Admin: 04/01/17 11:11 Dose: Not Given Insulin Detemir (Levemir Vial) 37 units SQ AM [facility] Last Admin: 03/31/17 06:21 Dose: 37 units Insulin Detemir (Levemir Vial) 37 units SQ HS [facility] Last Admin: 03/31/17 21:35 Dose: 37 units Lisinopril (Prinivil) 40 mg PO DAILY [facility] Last Admin: 04/01/17 09:58 Dose: 40 mg Mupirocin (Bactroban 2% Ointment -) 1 applic TP Q48H [facility] Last Admin: 03/31/17 12:09 Dose: 1 applic - Objective Vital Signs: Vital Signs Temperature 98.0 F 04/01/17 06:00 Pulse Rate 75 04/01/17 06:00 Respiratory Rate 18 04/01/17 06:00 Blood Pressure 164/80 04/01/17 06:00 O2 Sat by Pulse Oximetry (%) 98 03/31/17 20:42 Constitutional: Yes: No Distress, Calm Cardiovascular: Yes: Regular Rate and Rhythm Respiratory: Yes: Regular, CTA Bilaterally Gastrointestinal: Yes: Normal Bowel Sounds, Soft Musculoskeletal: Yes: Other Extremities: Yes: Other Wound/Incision: Yes: Other Neurological: Yes: Alert, Oriented Psychiatric: Yes: Alert, Oriented Labs: CBC, BMP 03/30/17 06:15 03/30/17 06:15 Assessment/Plan #left 4th distal toe ruptured blister and plantar ulcer osteomylitis #IDDM #HLD cx done by podiatry finally growing organism will await for sensitivities still awaiting one organism plan continue abx wound cx still pending one organism await for vascular and podiatry rest as per primary team
--- NOTE | 2017-04-01 14:02 | PN ---
Physical Exam: SUBJECTIVE: Patient seen and examined. No acute events overnight. Offers no new complaints. She denies headache, chest pain, abdominal pain, dizziness, nausea, vomiting and fever. OBJECTIVE: Vital Signs Period Temp Pulse Resp BP Sys/Cormier Pulse Ox Last 24 Hr 97.0 F-98.0 F 67-110 18-20 150-164/59-80 98 GENERAL: The patient is awake, alert, and fully oriented, in no acute distress. HEAD: Normal with no signs of trauma. EYES: PERRL, extraocular movements intact, sclera anicteric, conjunctiva clear. No ptosis. ENT: Ears normal, nares patent, oropharynx clear without exudates, moist mucous membranes. NECK: Trachea midline, full range of motion, supple. LUNGS: Breath sounds equal, clear to auscultation bilaterally, no wheezes, no crackles, no accessory muscle use. HEART: Regular rate and rhythm, S1, S2 without murmur, rub or gallop. ABDOMEN: Soft, nontender, nondistended, normoactive bowel sounds, no guarding, no rebound, no hepatosplenomegaly, no masses. EXTREMITIES: left foot in bandage. Left 4th distal phalanx shows a ruptured abscess still draining yellow pus upon expression. The entire toe is discolored , sensation is intact, motor function is intact, mildly tender to palpation. NEUROLOGICAL: Cranial nerves II through XII grossly intact. Normal speech, gait not observed. PSYCH: Normal mood, normal affect. SKIN: Warm, dry, normal turgor, no rashes or lesions noted Laboratory Results - last 24 hr 03/31/17 03/31/17 04/01/17 17:08 21:31 06:17 POC Glucometer 177 343 200 04/01/17 11:10 POC Glucometer 166 Active Medications Generic Name Dose Route Start Last Admin Trade Name Freq PRN Reason Stop Dose Admin Acetaminophen 650 mg 03/27/17 04:18 Tylenol - PO Q6H PRN FEVER OR PAIN Amlodipine Besylate 10 mg 03/27/17 10:00 04/01/17 09:59 Norvasc - PO 10 mg DAILY [facility] Administration Atorvastatin Calcium 20 mg 03/27/17 22:00 03/31/17 21:35 Lipitor - PO 20 mg HS [facility] Administration Heparin Sodium (Porcine) 5,000 unit 03/27/17 14:00 04/01/17 13:52 Heparin - SQ Not Given TID [facility] Hydrochlorothiazide 25 mg 03/29/17 22:00 04/01/17 09:59 Hctz - PO 25 mg BID [facility] Administration Vancomycin HCl 1,500 mg/ 500 mls @ 250 mls/hr 03/30/17 16:00 03/31/17 17:12 Dextrose IVPB 250 mls/hr DAILY@1600 [facility] Administration Protocol Piperacillin/Tazobactam/Dextrose 50 mls @ 100 mls/hr 04/01/17 18:00 Zosyn 3.375gm Ivpb (Premix) IVPB 04/03/17 10:29 Q8H-IV [facility] Protocol Insulin Aspart 1 vial 03/27/17 11:00 04/01/17 11:11 Novolog Vial Sliding Scale - SQ Not Given TIDAC [facility] Protocol Insulin Detemir 37 units 03/29/17 14:34 03/31/17 06:21 Levemir Vial SQ 37 units AM [facility] Administration Insulin Detemir 37 units 03/29/17 14:36 03/31/17 21:35 Levemir Vial SQ 37 units HS [facility] Administration Lisinopril 40 mg 03/29/17 14:45 04/01/17 09:58 Prinivil PO 40 mg DAILY [facility] Administration Mupirocin 1 applic 03/31/17 11:45 03/31/17 12:09 Bactroban 2% Ointment - TP 1 applic Q48H [facility] Administration ASSESSMENT/PLAN: 82F hx of HTN and IDDM presenting with acute left 4th distal toe pain, found to have hypertensive urgency of 190/67 and a left 4th toe ruptured abscess complicated by osteomyelitis, currently being treated with vancomycin and zosyn. #Left 4th distal toe abscess complicated by osteomyelitis MRI foot: osteomyelitis -ID on board, Dr. Pennington, recs appreciated -continue zosyn and vancomycin (day 6) -podiatry on board, appreciated recs - continue bactroban BID. -possible partial toe amputation -CTA runoff: Mild aortoiliac and femoral popliteal atherscl. dz with minimal inflow stenosis pred. less than 30%. Right infrapopliteal dz w/ single vessel runoff provided by SAROJ. Left infrapopliteal dz with single vessel runoff provided by the peroneal artery. -fu today's angiogram -wound cx (03/27): grew staph coag negative, 2nd culture (03/28): staph coag negative, eikenella corrodens #HTN -continue lisinopril 40mg qd and HCTZ 25mg -monitor BP. If low, will d/c amlodipine. #IDDM -ISS, BGM ACHS -a1c of 7.3 -continue levemir to 37U BID #HLD -continue atorvastatin 20mg qd #FEN -No IV fluids -WNL -Diabetic diet #PPX: Heparin SQ Visit type - Emergency Visit Emergency Visit: Yes ED Registration Date: 03/27/17 Care time: The patient presented to the Emergency Department on the above date and was hospitalized for further evaluation of their emergent condition. - New Patient This patient is new to me today: No - Critical Care Critical Care patient: No
[2017-04-01] MEDS: VANCOMYCIN 1,500 MG in DEXTROSE 5%-WATER - 500 ML IVPB SCH (16:54)
[2017-04-01] MEDS ORDERED: PIPERACILLIN/TAZOB 3.375 GM 50 ML IVPB SCH (18:00)
[2017-04-01] MEDS ORDERED: PROPOFOL 20 ML ONE (18:13)
[2017-04-01] MEDS ORDERED: MIDAZOLAM HCL 2 MG/2 ML SINGLE DOSE VIAL ONE (18:13)
[2017-04-01] MEDS ORDERED: ceFAZolin SODIUM 1 GM VIAL ONE (18:15)
[2017-04-01] MEDS ORDERED: SODIUM CHLORIDE 0.9% P/F 10 ML VIAL IJ ONE (18:15)
[2017-04-01] MEDS ORDERED: HEPARIN NA (PORCINE) 5,000 UNITS/ML 1ML VIAL ONE (18:19)
[2017-04-01] MEDS ORDERED: LIDOCAINE HCL 1%, 10 MG/ML (20ML VIAL) ONE (18:19)
[2017-04-01] MEDS ORDERED: ceFAZolin SODIUM 1 GM VIAL IVPB ONE (18:21)
[2017-04-01] MEDS ORDERED: LIDOCAINE HCL 1%, 10 MG/ML (20ML VIAL) INF ONE (18:32)
[2017-04-01] MEDS ORDERED: IOHEXOL 300 MG/ML INFUS..BTL IJ ONE (18:40)
--- NOTE | 2017-04-01 19:16 | PN ---
Progress Note (short form) - Note Progress Note: Vascular Surgery S/P peroneal artery angioplasty - 80% stenosis Pt has one vessel runoff to foot. Would opt to treat pt with picc line and HBO first. Would do partial amputation if antibiotics and HBO don't heal the toe. Due to there being one vessel runoff to the foot, and direct flow to forefoot, there is a chance that the amputation site will not heal. Will follow. Juan Francisco Ferrell DO
--- NOTE | 2017-04-01 19:19 | OP ---
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
[2017-04-01] MEDS ORDERED: PROMETHAZINE HCL 25 MG/1 ML VIAL IVPUSH PRN (19:22)
[2017-04-01] MEDS ORDERED: ONDANSETRON 4 MG/2 ML VIAL IVPUSH PRN (19:22)
--- NOTE | 2017-04-01 19:49 | PN ---
Teaching Attending Note Name of Resident: Henry Giron ATTENDING PHYSICIAN STATEMENT I saw and evaluated the patient. I reviewed the resident's note and discussed the case with the resident. I agree with the resident's findings and plan as documented. SUBJECTIVE: OBJECTIVE: Vital Signs Temperature 98.1 F 04/01/17 14:53 Pulse Rate 64 04/01/17 14:53 Respiratory Rate 18 04/01/17 14:53 Blood Pressure 153/71 04/01/17 14:53 O2 Sat by Pulse Oximetry (%) 97 04/01/17 09:00 CBCD WBC 8.9 K/mm3 (4.0-10.0) 03/30/17 06:15 RBC 5.09 M/mm3 (3.60-5.2) 03/30/17 06:15 Hgb 13.0 GM/dL (10.7-15.3) 03/30/17 06:15 Hct 40.8 % (32.4-45.2) 03/30/17 06:15 MCV 80.1 fl (80-96) 03/30/17 06:15 MCHC 31.9 g/dl (32.0-36.0) L 03/30/17 06:15 RDW 15.8 % (11.6-15.6) H 03/30/17 06:15 Plt Count 202 K/MM3 (134-434) 03/30/17 06:15 MPV 10.5 fl (7.5-11.1) 03/30/17 06:15 CMP Sodium 138 mmol/L (136-145) 03/30/17 06:15 Potassium 3.9 mmol/L (3.5-5.1) 03/30/17 06:15 Chloride 102 mmol/L (98-107) 03/30/17 06:15 Carbon Dioxide 27 mmol/L (21-32) 03/30/17 06:15 Anion Gap 9 (8-16) 03/30/17 06:15 BUN 14 mg/dL (7-18) 03/30/17 06:15 Creatinine 1.1 mg/dL (0.55-1.02) H 03/30/17 06:15 Creat Clearance w eGFR 47.67 (>60) 03/27/17 00:40 Random Glucose 217 mg/dL (74-106) H D 03/30/17 06:15 Calcium 9.0 mg/dL (8.5-10.1) 03/30/17 06:15 Total Bilirubin 0.3 mg/dL (0.2-1.0) 03/27/17 00:40 AST 12 U/L (15-37) L 03/27/17 00:40 ALT 20 U/L (12-78) 03/27/17 00:40 Alkaline Phosphatase 156 U/L (45-117) H 03/27/17 00:40 Total Protein 7.4 g/dl (6.4-8.2) 03/27/17 00:40 Albumin 3.0 g/dl (3.4-5.0) L 03/27/17 00:40 Current Medications Generic Name Dose Route Start Last Admin Trade Name Freq PRN Reason Stop Dose Admin Acetaminophen 650 mg 03/27/17 04:18 Tylenol - PO Q6H PRN FEVER OR PAIN Amlodipine Besylate 10 mg 03/27/17 10:00 04/01/17 09:59 Norvasc - PO 10 mg DAILY [facility] Administration Atorvastatin Calcium 20 mg 03/27/17 22:00 03/31/17 21:35 Lipitor - PO 20 mg HS [facility] Administration Clopidogrel Bisulfate 75 mg 04/01/17 19:30 Plavix - PO DAILY [facility] Fentanyl 50 mcg 04/01/17 19:22 Sublimaze Injection - IVPUSH 04/04/17 19:23 [id number] PRN PAIN Heparin Sodium (Porcine) 5,000 unit 03/27/17 14:00 04/01/17 13:52 Heparin - SQ Not Given TID [facility] Hydrochlorothiazide 25 mg 03/29/17 22:00 04/01/17 09:59 Hctz - PO 25 mg BID [facility] Administration Vancomycin HCl 1,500 mg/ 500 mls @ 250 mls/hr 03/30/17 16:00 04/01/17 16:54 Dextrose IVPB 250 mls/hr DAILY@1600 [facility] Administration Protocol Piperacillin/Tazobactam/Dextrose 50 mls @ 100 mls/hr 04/01/17 18:00 Zosyn 3.375gm Ivpb (Premix) IVPB 04/03/17 10:29 Q8H-IV [facility] Protocol Lactated Ringer's 1,000 mls @ 125 mls/hr 04/01/17 19:30 Lactated Ringers Solution IV ASDIR [facility] Insulin Aspart 1 vial 03/27/17 11:00 04/01/17 16:51 Novolog Vial Sliding Scale - SQ Not Given TIDAC [facility] Protocol Insulin Detemir 37 units 03/29/17 14:34 03/31/17 06:21 Levemir Vial SQ 37 units AM [facility] Administration Insulin Detemir 37 units 03/29/17 14:36 03/31/17 21:35 Levemir Vial SQ 37 units HS [facility] Administration Lisinopril 40 mg 03/29/17 14:45 04/01/17 09:58 Prinivil PO 40 mg DAILY [facility] Administration Mupirocin 1 applic 03/31/17 11:45 03/31/17 12:09 Bactroban 2% Ointment - TP 1 applic Q48H [facility] Administration Ondansetron HCl 4 mg 04/01/17 19:22 Zofran Injection IVPUSH 04/02/17 01:23 Q6H PRN NAUSEA AND/OR VOMITING Promethazine HCl 12.5 mg 04/01/17 19:22 Phenergan Injection - IVPUSH 04/02/17 01:23 Q6H PRN NAUSEA-FOR RESCUE AFTER 15 MIN Home Medications Medication Instructions Recorded Acetaminophen [Tylenol PRN 03/27/17 .Extra-Strength -] Atorvastatin Calcium 20 mg PO 03/27/17 Hydrochlorothiazide 25 mg PO BID 03/27/17 Lisinopril [Prinivil -] 40 mg PO DAILY 03/27/17 Vitamin D3 03/27/17 PE: Left 4th toe osteo rest of PE per resident's note ASSESSMENT AND PLAN: 82 y/o pleasant lady with h/o HTN and IDDM who presented with a draining wound on L 4th toe. She was found to have infected wound with abscess. # Left 4th toe infected wound with minimal discharge with OM on IV antibiotic continue vanco and zosyn, possible amputation of left 4th toe. US doppler done . 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 Patient s/p angiogram today prior to partial toe amputation. As per Associate Professor Of Music's recommendation prior to partial toe amputation of 4th digit. Patient has extensive tibial disease requiring angiogram with Dr. Ferrell. Once patient is cleared by vascular, will proceed with partial toe amputation on Tuesday. # HTN urgency. resolved . cont Norvasc , lisinopril and HCTZ # FRANKIE:resolved s/p IVF . monitor # IDDM increase levemir to 37 BID , SSI DVT PX : Heparin sq follow the angiogram result
[2017-04-01] MEDS ORDERED: ACETAMINOPHEN 325 MG TABLET (FP) PO PRN (20:01)
[2017-04-01] MEDS ORDERED: CLOPIDOGREL BISULFATE 75 MG TABLET (FP) ONE (20:12)
[2017-04-01] MEDS: CLOPIDOGREL BISULFATE 75 MG TABLET (FP) PO SCH (20:15)
[2017-04-01] MEDS: LACTATED RINGERS SOLUTION 1,000 ML IV SCH (20:45)
[2017-04-01] MEDS: ATORVASTATIN CA 20 MG TABLET (FP) PO SCH (21:45)
[2017-04-01] MEDS: INSULIN DETEMIR 100 UNITS/ML MDV SQ SCH (21:49)
[2017-04-02] MEDS: PIPERACILLIN/TAZOB 3.375 GM 50 ML IVPB SCH ×3 (01:01→17:26)
[2017-04-02] MEDS: HYDROCHLOROTHIAZIDE 25 MG TABLET (FP) PO SCH ×2 (06:12→17:34)
[2017-04-02] MEDS: HEPARIN NA (PORCINE) 5,000 UNITS/ML 1ML VIAL SQ SCH ×3 (06:12→21:44)
[2017-04-02] MEDS: INSULIN SLIDING SCALE (NOVOLOG) 1 VIAL SQ SCH ×3 (06:45→17:26)
[2017-04-02] MEDS: INSULIN DETEMIR 100 UNITS/ML MDV SQ SCH ×2 (06:46→21:45)
[2017-04-02] MEDS: LACTATED RINGERS SOLUTION 1,000 ML IV SCH ×2 (06:46→14:42)
[2017-04-02 07:51] LABS: ALBUMIN 2.9 g/dl (3.4-5.0); ANION GAP 11 (8-16); CALCIUM 8.9 mg/dL (8.5-10.1); CO2 29 mmol/L (21-32); CREATININE 1.2 mg/dL (0.55-1.02); GLUCOSE,RANDOM 225 mg/dL (74-106); SGOT/AST 15 U/L (15-37); SGPT/ALT 25 U/L (12-78)
[2017-04-02 07:53] LABS: ALK PHOS 97 U/L (45-117); BILIRUBIN,TOTAL 0.9 mg/dL (0.2-1.0); TOT PROT 7.5 g/dl (6.4-8.2)
[2017-04-02] MEDS: CLOPIDOGREL BISULFATE 75 MG TABLET (FP) PO SCH (09:01)
[2017-04-02] MEDS: LISINOPRIL 20 MG TABLET (FP) PO SCH (09:01)
[2017-04-02] MEDS: amLODIPine BESYLATE 10 MG TABLET (FP) PO SCH (09:01)
--- NOTE | 2017-04-02 09:29 | PN ---
Progress Note (short form) - Note Progress Note: Anesthesia Post Op Pt seen and examined S;alert and awake O: Vital Signs Temperature 98.7 F 04/02/17 06:00 Pulse Rate 71 04/02/17 06:00 Respiratory Rate 20 04/02/17 06:00 Blood Pressure 144/68 04/02/17 06:00 O2 Sat by Pulse Oximetry (%) 96 04/01/17 21:00 CBC, BMP 03/30/17 06:15 04/02/17 06:00 A/P: Current Active Problems Diabetic ulcer of left foot (Acute) s/p angiogram angio plasty left leg Doing well post op Continue current care Basilio Anthony MD
[2017-04-02] MEDS ORDERED: INSULIN (NOVOLOG) ASPART 100 UNITS/ML 10ML VIAL ONE (12:02)
[2017-04-02] MEDS ORDERED: PT OWN MED DRAWER 7, Y5N ONE (14:46)
--- NOTE | 2017-04-02 15:11 | PN ---
Progress Note, Physician - Current Medication List Current Medications: Active Medications Acetaminophen (Tylenol -) 650 mg PO Q6H PRN PRN Reason: FEVER OR PAIN Amlodipine Besylate (Norvasc -) 10 mg PO DAILY [facility] Last Admin: 04/02/17 09:01 Dose: 10 mg Atorvastatin Calcium (Lipitor -) 20 mg PO HS [facility] Last Admin: 04/01/17 21:45 Dose: 20 mg Clopidogrel Bisulfate (Plavix -) 75 mg PO DAILY [facility] Last Admin: 04/02/17 09:01 Dose: 75 mg Fentanyl (Sublimaze Injection -) 50 mcg IVPUSH [id number] PRN PRN Reason: PAIN Stop: 04/04/17 19:23 Heparin Sodium (Porcine) (Heparin -) 5,000 unit SQ TID [facility] Last Admin: 04/02/17 14:43 Dose: 5,000 unit Hydrochlorothiazide (Hctz -) 25 mg PO BID@0600,1800 [facility] Last Admin: 04/02/17 06:12 Dose: 25 mg Lactated Ringer's (Lactated Ringers Solution) 1,000 mls @ 125 mls/hr IV ASDIR [facility] Last Admin: 04/02/17 14:42 Dose: 125 mls/hr Piperacillin/Tazobactam/Dextrose (Zosyn 3.375gm Ivpb (Premix)) 50 mls @ 100 mls /hr IVPB Q8H-IV [facility] PRN Reason: Protocol Stop: 04/03/17 10:29 Last Admin: 04/02/17 10:35 Dose: 100 mls/hr Vancomycin HCl 1,500 mg/ (Dextrose) 500 mls @ 250 mls/hr IVPB DAILY@1600 [facility] PRN Reason: Protocol Insulin Aspart (Novolog Vial Sliding Scale -) 1 vial SQ TIDAC [facility] PRN Reason: Protocol Last Admin: 04/02/17 12:18 Dose: 4 units Insulin Detemir (Levemir Vial) 37 units SQ HS [facility] Last Admin: 04/01/17 21:49 Dose: Not Given Insulin Detemir (Levemir Vial) 37 units SQ AM [facility] Last Admin: 04/02/17 06:46 Dose: 37 units Lisinopril (Prinivil) 40 mg PO DAILY [facility] Last Admin: 04/02/17 09:01 Dose: 40 mg Mupirocin (Bactroban 2% Ointment -) 1 applic TP Q48H [facility] - Objective Vital Signs: Vital Signs Temperature 97.4 F L 04/02/17 14:51 Pulse Rate 73 04/02/17 14:51 Respiratory Rate 18 04/02/17 14:51 Blood Pressure 155/58 04/02/17 14:51 O2 Sat by Pulse Oximetry (%) 96 04/01/17 21:00 Constitutional: Yes: Well Nourished, No Distress, Calm Eyes: Yes: WNL, Conjunctiva Clear, EOM Intact HENT: Yes: WNL, Atraumatic, Normocephalic Neck: Yes: WNL, Supple, Trachea Midline Cardiovascular: Yes: WNL, Regular Rate and Rhythm Respiratory: Yes: WNL, Regular, CTA Bilaterally Gastrointestinal: Yes: WNL, Normal Bowel Sounds, Soft ...Rectal Exam: Yes: Deferred Labs: CBC, BMP 03/30/17 06:15 04/02/17 06:00 Problem List - Problems (1) Hypertension Assessment/Plan: controlled with amlodipine and lisinopril will start the patient on a beta-blockers - metoprolol xl 25mg daily starting betablockers prior to surgery decreases risk of CVD better control of HR Code(s): I10 - ESSENTIAL (PRIMARY) HYPERTENSION Qualifiers: Hypertension type: essential hypertension Qualified Code(s): I10 - Essential (primary) hypertension; I10 - Essential (primary) hypertension; I10 - Essential (primary) hypertension (2) Diabetes Code(s): E11.9 - TYPE 2 DIABETES MELLITUS WITHOUT COMPLICATIONS Qualifiers: Diabetes mellitus type: type 2 Diabetes mellitus complication status: with neurologic complications Diabetes mellitus termite helper insulin use: unspecified senior living insulin use status (3) Diabetic ulcer of left foot Assessment/Plan: surgical follow up for possible amputation of the toe Code(s): E11.621 - TYPE 2 DIABETES MELLITUS WITH FOOT ULCER L97.529 - NON-PRESSURE CHRONIC ULCER OTH PRT LEFT FOOT W UNSP SEVERITY Qualifiers: Diabetic foot ulcer location: toe Diabetes mellitus type: type 2 Non-pressure ulcer stage: with necrosis of bone Qualified Code(s): E11.621 - Type 2 diabetes mellitus with foot ulcer; E11.621 - Type 2 diabetes mellitus with foot ulcer; E11.621 - Type 2 diabetes mellitus with foot ulcer; E11.621 - Type 2 diabetes mellitus with foot ulcer; L97.524 - Non-pressure chronic ulcer of other part of left foot with necrosis of bone; L97.524 - Non- pressure chronic ulcer of other part of left foot with necrosis of bone; L97.524 - Non-pressure chronic ulcer of other part of left foot with necrosis of bone; L97.524 - Non-pressure chronic ulcer of other part of left foot with necrosis of bone
--- NOTE | 2017-04-02 15:15 | PN ---
Progress Note, Physician Chief Complaint: ID progress note History of Present Illness: Pt seen and examined. Chart/labs/imaging reviewed. Pt is s/p angioplasty. Denies having any specific complaints. - Current Medication List Current Medications: Active Medications Acetaminophen (Tylenol -) 650 mg PO Q6H PRN PRN Reason: FEVER OR PAIN Amlodipine Besylate (Norvasc -) 10 mg PO DAILY [facility] Last Admin: 04/02/17 09:01 Dose: 10 mg Atorvastatin Calcium (Lipitor -) 20 mg PO HS [facility] Last Admin: 04/01/17 21:45 Dose: 20 mg Clopidogrel Bisulfate (Plavix -) 75 mg PO DAILY [facility] Last Admin: 04/02/17 09:01 Dose: 75 mg Fentanyl (Sublimaze Injection -) 50 mcg IVPUSH [id number] PRN PRN Reason: PAIN Stop: 04/04/17 19:23 Heparin Sodium (Porcine) (Heparin -) 5,000 unit SQ TID [facility] Last Admin: 04/02/17 14:43 Dose: 5,000 unit Hydrochlorothiazide (Hctz -) 25 mg PO BID@0600,1800 [facility] Last Admin: 04/02/17 06:12 Dose: 25 mg Lactated Ringer's (Lactated Ringers Solution) 1,000 mls @ 125 mls/hr IV ASDIR [facility] Last Admin: 04/02/17 14:42 Dose: 125 mls/hr Piperacillin/Tazobactam/Dextrose (Zosyn 3.375gm Ivpb (Premix)) 50 mls @ 100 mls /hr IVPB Q8H-IV [facility] PRN Reason: Protocol Stop: 04/03/17 10:29 Last Admin: 04/02/17 10:35 Dose: 100 mls/hr Vancomycin HCl 1,500 mg/ (Dextrose) 500 mls @ 250 mls/hr IVPB DAILY@1600 [facility] PRN Reason: Protocol Insulin Aspart (Novolog Vial Sliding Scale -) 1 vial SQ TIDAC [facility] PRN Reason: Protocol Last Admin: 04/02/17 12:18 Dose: 4 units Insulin Detemir (Levemir Vial) 37 units SQ HS [facility] Last Admin: 04/01/17 21:49 Dose: Not Given Insulin Detemir (Levemir Vial) 37 units SQ AM [facility] Last Admin: 04/02/17 06:46 Dose: 37 units Lisinopril (Prinivil) 40 mg PO DAILY [facility] Last Admin: 04/02/17 09:01 Dose: 40 mg Mupirocin (Bactroban 2% Ointment -) 1 applic TP Q48H [facility] - Objective Vital Signs: Vital Signs Temperature 97.4 F L 04/02/17 14:51 Pulse Rate 73 04/02/17 14:51 Respiratory Rate 18 04/02/17 14:51 Blood Pressure 155/58 04/02/17 14:51 O2 Sat by Pulse Oximetry (%) 96 04/01/17 21:00 Constitutional: Yes: Well Nourished, No Distress, Calm Eyes: Yes: WNL HENT: Yes: WNL Neck: Yes: WNL Cardiovascular: Yes: Regular Rate and Rhythm Respiratory: Yes: CTA Bilaterally Gastrointestinal: Yes: Normal Bowel Sounds, Soft Genitourinary: Yes: WNL Extremities: Yes: Other (Lt 4th toe mildly darkened, dry, no purulence noted) Edema: No Wound/Incision: Yes: Clean/Dry Labs: CBC, BMP 03/30/17 06:15 04/02/17 06:00 Microbiology 03/28/17 12:18 Foot - Left Plantar Gram Stain - Final 03/28/17 12:18 Foot - Left Plantar Wound Culture - Final Eikenella Corrodens Capnocytophaga Species 03/27/17 09:50 Blood - Peripheral Venous Blood Culture - Final NO GROWTH AFTER 5 DAYS INCUBATION 03/27/17 09:55 Blood - Peripheral Venous Blood Culture - Final NO GROWTH AFTER 5 DAYS INCUBATION 03/27/17 10:45 Wound Gram Stain - Final 03/27/17 10:45 Wound Wound Culture - Final Staphylococcus Coagulase Neg Eikenella Corrodens Assessment/Plan Lt 4th toe OM/plantar ulcer DM PVD s/p angioplasty - continue current antibiotics - check Vancomycin trough - continue wound care monitor renal function
[2017-04-02] MEDS: MUPIROCIN 2% TOPICAL OINTMENT 22 GM TUBE TP SCH (15:45)
[2017-04-02] MEDS: VANCOMYCIN 1,500 MG in DEXTROSE 5%-WATER - 500 ML IVPB SCH (17:51)
[2017-04-02] MEDS: ATORVASTATIN CA 20 MG TABLET (FP) PO SCH (21:46)
[2017-04-03] MEDS ORDERED: PT OWN MED DRAWER 7, Y5N ONE ×2 (01:01→10:12)
[2017-04-03] MEDS: PIPERACILLIN/TAZOB 3.375 GM 50 ML IVPB SCH ×2 (01:14→10:12)
[2017-04-03] MEDS ORDERED: INSULIN (NOVOLOG) ASPART 100 UNITS/ML 10ML VIAL ONE (04:53)
[2017-04-03] MEDS: HYDROCHLOROTHIAZIDE 25 MG TABLET (FP) PO SCH (06:14)
[2017-04-03] MEDS: HEPARIN NA (PORCINE) 5,000 UNITS/ML 1ML VIAL SQ SCH ×3 (06:15→22:41)
[2017-04-03] MEDS: INSULIN DETEMIR 100 UNITS/ML MDV SQ SCH ×2 (06:49→22:41)
[2017-04-03] MEDS: INSULIN SLIDING SCALE (NOVOLOG) 1 VIAL SQ SCH ×3 (06:50→17:40)
[2017-04-03 08:37] LABS: BASOPHIL 0.9 % (0-2.0); EOSINOPHIL 4.8 % (0-4.5); MCH 25.5 pg (25.7-33.7); MCHC 32.2 g/dl (32.0-36.0); MEAN CELL VOLUME 79.2 fl (80-96); MEAN PLT VOLUME 10.4 fl (7.5-11.1); NEUTROPHILS 53.9 % (42.8-82.8); PLATELET COUNT 196 K/MM3 (134-434); RDW 15.8 % (11.6-15.6); WHITE BLOOD COUNT 9.1 K/mm3 (4.0-10.0)
[2017-04-03 09:14] LABS: ALBUMIN 2.9 g/dl (3.4-5.0); ANION GAP 7 (8-16); CO2 32 mmol/L (21-32); CREATININE 1.3 mg/dL (0.55-1.02); GLUCOSE,RANDOM 183 mg/dL (74-106); SGOT/AST 12 U/L (15-37); SGPT/ALT 22 U/L (12-78); TOT PROT 7.3 g/dl (6.4-8.2)
[2017-04-03 09:16] LABS: ALK PHOS 85 U/L (45-117)
[2017-04-03] MEDS: LISINOPRIL 20 MG TABLET (FP) PO SCH (10:08)
[2017-04-03] MEDS: amLODIPine BESYLATE 10 MG TABLET (FP) PO SCH (10:08)
[2017-04-03] MEDS: METOPROLOL SUCCINATE 25 MG TAB.SR.24H (FP) PO SCH (10:08)
[2017-04-03] MEDS: CLOPIDOGREL BISULFATE 75 MG TABLET (FP) PO SCH (10:16)
--- NOTE | 2017-04-03 11:51 | PN ---
Physical Exam: SUBJECTIVE: Patient seen and examined. No acute events overnight. Offers no new complaints today. OBJECTIVE: Vital Signs Period Temp Pulse Resp BP Sys/Cormier Pulse Ox Last 24 Hr 97.4 F-98.2 F 62-73 18-20 131-160/58-73 97 GENERAL: The patient is awake, alert, and fully oriented, in no acute distress. HEAD: Normal with no signs of trauma. EYES: PERRL, extraocular movements intact, sclera anicteric, conjunctiva clear. No ptosis. ENT: Ears normal, nares patent, oropharynx clear without exudates, moist mucous membranes. NECK: Trachea midline, full range of motion, supple. LUNGS: Breath sounds equal, clear to auscultation bilaterally, no wheezes, no crackles, no accessory muscle use. HEART: Regular rate and rhythm, S1, S2 without murmur, rub or gallop. ABDOMEN: Soft, nontender, nondistended, normoactive bowel sounds, no guarding, no rebound, no hepatosplenomegaly, no masses. EXTREMITIES: left foot in bandage. The entire toe is discolored, sensation is intact, motor function is intact, mildly tender to palpation. NEUROLOGICAL: Cranial nerves II through XII grossly intact. Normal speech, gait not observed. PSYCH: Normal mood, normal affect. SKIN: Warm, dry, normal turgor, no rashes or lesions noted Laboratory Results - last 24 hr 04/02/17 04/02/17 04/02/17 16:00 16:25 21:43 WBC RBC Hgb Hct MCV MCH MCHC RDW Plt Count MPV Neutrophils % Lymphocytes % Monocytes % Eosinophils % Basophils % Sodium Potassium Chloride Carbon Dioxide Anion Gap BUN Creatinine Creat Clearance w eGFR POC Glucometer 150 247 Random Glucose Calcium Total Bilirubin AST ALT Alkaline Phosphatase Total Protein Albumin Vancomycin Pre-Dose 17.030 H* 04/03/17 04/03/17 04/03/17 06:13 08:34 08:34 WBC 9.1 RBC 5.10 Hgb 13.0 Hct 40.4 MCV 79.2 L MCH 25.5 L MCHC 32.2 RDW 15.8 H Plt Count 196 MPV 10.4 Neutrophils % 53.9 Lymphocytes % 28.7 Monocytes % 11.7 H Eosinophils % 4.8 H Basophils % 0.9 Sodium 139 Potassium 3.8 Chloride 100 Carbon Dioxide 32 Anion Gap 7 L BUN 21 H Creatinine 1.3 H Creat Clearance w eGFR 39.31 POC Glucometer 194 Random Glucose 183 H Calcium 9.0 Total Bilirubin 1.0 AST 12 L ALT 22 Alkaline Phosphatase 85 Total Protein 7.3 Albumin 2.9 L Vancomycin Pre-Dose Active Medications Generic Name Dose Route Start Last Admin Trade Name Freq PRN Reason Stop Dose Admin Acetaminophen 650 mg 04/01/17 20:01 Tylenol - PO Q6H PRN FEVER OR PAIN Amlodipine Besylate 10 mg 04/02/17 10:00 04/03/17 10:08 Norvasc - PO 10 mg DAILY [facility] Administration Atorvastatin Calcium 20 mg 04/01/17 22:00 04/02/17 21:46 Lipitor - PO 20 mg HS [facility] Administration Clopidogrel Bisulfate 75 mg 04/01/17 19:30 04/03/17 10:16 Plavix - PO Not Given DAILY [facility] Fentanyl 50 mcg 04/01/17 19:22 Sublimaze Injection - IVPUSH 04/04/17 19:23 [id number] PRN PAIN Heparin Sodium (Porcine) 5,000 unit 04/01/17 22:00 04/03/17 06:15 Heparin - SQ 5,000 unit TID [facility] Administration Vancomycin HCl 1,500 mg/ 500 mls @ 250 mls/hr 04/02/17 16:00 04/02/17 17:51 Dextrose IVPB Not Given DAILY@1600 [facility] Protocol Insulin Aspart 1 vial 04/02/17 07:00 04/03/17 06:50 Novolog Vial Sliding Scale - SQ 2 units TIDAC [facility] Administration Protocol Insulin Detemir 37 units 04/01/17 22:00 04/02/17 21:45 Levemir Vial SQ 37 units HS [facility] Administration Insulin Detemir 37 units 04/02/17 07:00 04/03/17 06:49 Levemir Vial SQ 37 units AM [facility] Administration Lisinopril 40 mg 04/02/17 10:00 04/03/17 10:08 Prinivil PO 40 mg DAILY [facility] Administration Metoprolol Succinate 25 mg 04/03/17 10:00 04/03/17 10:08 Toprol Xl - PO 25 mg DAILY [facility] Administration Mupirocin 1 applic 04/02/17 11:45 04/02/17 15:45 Bactroban 2% Ointment - TP 1 applic Q48H [facility] Administration ASSESSMENT/PLAN: #Left 4th distal toe abscess complicated by osteomyelitis MRI foot: osteomyelitis -ID on board, Dr. Pennington, recs appreciated -continue zosyn and vancomycin (day 8) -podiatry on board, appreciated recs - continue bactroban BID. -possible partial toe amputation -CTA runoff: Mild aortoiliac and femoral popliteal atherscl. dz with minimal inflow stenosis pred. less than 30%. Right infrapopliteal dz w/ single vessel runoff provided by SAROJ. Left infrapopliteal dz with single vessel runoff provided by the peroneal artery. -possible partial toe amputation tomorrow -wound cx (03/27): grew staph coag negative, 2nd culture (03/28): staph coag negative, eikenella corrodens #HTN -continue lisinopril 40mg qd and HCTZ 25mg -monitor BP. #IDDM -ISS, BGM ACHS -a1c of 7.3 -continue levemir to 37U BID #HLD -continue atorvastatin 20mg qd #FEN -No IV fluids -WNL -Diabetic diet, NPO after midnight for procedure Visit type - Emergency Visit Emergency Visit: Yes ED Registration Date: 03/27/17 Care time: The patient presented to the Emergency Department on the above date and was hospitalized for further evaluation of their emergent condition. - New Patient This patient is new to me today: No - Critical Care Critical Care patient: No
--- NOTE | 2017-04-03 12:38 | PN ---
Progress Note (short form) - Note Progress Note: Podiatry F/U: Seen/evaluated at bedside, NAD. Denies F/V/N/C/SOB/CP. Afebrile, VSS. S/p LLE angioplasty (peroneal) with Dr. Ferrell. JEREMIAH: L foot: 4th digit distal tuft ulcer mostly fibrotic, probes deep, no more purulence expressed from the wound, hyperkeratotic borders, no fluctuance, no soft tissue crepitus, no periwound erythema, no ascending cellulitis, no signs of active infection. Minimal tenderness to palpation. WBC: 9.1 Wound Cx: eikenella corrodens, capnocytophaga species Blood Cx: no growth x 5 days L foot MRI: (+) osteomyelitis distal phalanx 4th digit Imp: 82 year old DM, PVD F with L 4th digit osteomyelitis, s/p LLE peroneal angioplasty 1. IV abx per Infectious Disease 2. Continue local wound care 3. Discussed case with Dr. Ferrell, he does not recommend partial amputation at this time due to concerns with appropriate healing post-operatively. Will attempt to treat conservatively with course of IV abx via PICC line and aggressive local wound care. If symptoms worsen will need partial amputation. Discussed this at length with patient's daugther. 4. For PICC line. 5. Upon discharge will f/u in wound healing center. Natasha Ricketts DPM
--- NOTE | 2017-04-03 16:05 | PN ---
Progress Note, Physician Chief Complaint: I.D. Progress note History of Present Illness: Pt seen and examined, labs noted. She states she feels well, denies pain, fever/ chills, abd pain/n/v/d. - Current Medication List Current Medications: Active Medications Acetaminophen (Tylenol -) 650 mg PO Q6H PRN PRN Reason: FEVER OR PAIN Amlodipine Besylate (Norvasc -) 10 mg PO DAILY [facility] Last Admin: 04/03/17 10:08 Dose: 10 mg Atorvastatin Calcium (Lipitor -) 20 mg PO HS [facility] Last Admin: 04/02/17 21:46 Dose: 20 mg Clopidogrel Bisulfate (Plavix -) 75 mg PO DAILY [facility] Last Admin: 04/03/17 10:16 Dose: Not Given Fentanyl (Sublimaze Injection -) 50 mcg IVPUSH [id number] PRN PRN Reason: PAIN Stop: 04/04/17 19:23 Heparin Sodium (Porcine) (Heparin -) 5,000 unit SQ TID [facility] Last Admin: 04/03/17 06:15 Dose: 5,000 unit Vancomycin HCl 1,500 mg/ (Dextrose) 500 mls @ 250 mls/hr IVPB DAILY@1600 [facility] PRN Reason: Protocol Last Admin: 04/02/17 17:51 Dose: Not Given Insulin Aspart (Novolog Vial Sliding Scale -) 1 vial SQ TIDAC [facility] PRN Reason: Protocol Last Admin: 04/03/17 12:20 Dose: 4 units Insulin Detemir (Levemir Vial) 37 units SQ HS [facility] Last Admin: 04/02/17 21:45 Dose: 37 units Insulin Detemir (Levemir Vial) 37 units SQ AM [facility] Last Admin: 04/03/17 06:49 Dose: 37 units Lisinopril (Prinivil) 40 mg PO DAILY [facility] Last Admin: 04/03/17 10:08 Dose: 40 mg Metoprolol Succinate (Toprol Xl -) 25 mg PO DAILY [facility] Last Admin: 04/03/17 10:08 Dose: 25 mg Mupirocin (Bactroban 2% Ointment -) 1 applic TP Q48H [facility] Last Admin: 04/02/17 15:45 Dose: 1 applic - Objective Vital Signs: Vital Signs Temperature 98.1 F 04/03/17 14:33 Pulse Rate 64 10/15/17 14:33 Respiratory Rate 18 04/03/17 14:33 Blood Pressure 142/63 04/03/17 14:33 O2 Sat by Pulse Oximetry (%) 96 04/03/17 09:00 Constitutional: Yes: No Distress, Calm HENT: Yes: Atraumatic Neck: Yes: Supple Cardiovascular: Yes: WNL Respiratory: Yes: CTA Bilaterally Gastrointestinal: Yes: Normal Bowel Sounds, Soft Genitourinary: Yes: WNL Extremities: Yes: Other (Lt 4th toe without drainage, plantar site healing, clean) Edema: No Wound/Incision: Yes: Clean/Dry Neurological: Yes: Alert, Oriented Labs: CBC, BMP 04/03/17 08:34 04/03/17 08:34 Vanco Trough: 17 Problem List - Problems (1) Diabetes Code(s): E11.9 - TYPE 2 DIABETES MELLITUS WITHOUT COMPLICATIONS Qualifiers: Diabetes mellitus type: type 2 Diabetes mellitus complication status: with neurologic complications Diabetes mellitus termite technician insulin use: unspecified termite technician insulin use status (2) Diabetic ulcer of left foot Code(s): E11.621 - TYPE 2 DIABETES MELLITUS WITH FOOT ULCER L97.529 - NON-PRESSURE CHRONIC ULCER OTH PRT LEFT FOOT W UNSP SEVERITY Qualifiers: Diabetic foot ulcer location: toe Diabetes mellitus type: type 2 Non-pressure ulcer stage: with necrosis of bone Qualified Code(s): E11.621 - Type 2 diabetes mellitus with foot ulcer; E11.621 - Type 2 diabetes mellitus with foot ulcer; E11.621 - Type 2 diabetes mellitus with foot ulcer; E11.621 - Type 2 diabetes mellitus with foot ulcer; L97.529 - Non-pressure chronic ulcer of other part of left foot with unspecified severity; L97.529 - Non-pressure chronic ulcer of other part of left foot with unspecified severity ; L97.529 - Non-pressure chronic ulcer of other part of left foot with unspecified severity; L97.529 - Non-pressure chronic ulcer of other part of left foot with unspecified severity Assessment/Plan Lt 4th toe infection/OM/plantar ulcer DM PVD s/p angioplasty - d/c Zosyn, Start Ertapenem 1 gram IV daily, adjust Vancomycin to 1250mg IV daily - PICC placement - will need monitoring of cbc, bmp, vancomycin levels - continue wound care monitor renal function
[2017-04-03] MEDS: VANCOMYCIN 1,500 MG in DEXTROSE 5%-WATER - 500 ML IVPB SCH (16:19)
--- NOTE | 2017-04-03 16:41 | PN ---
Teaching Attending Note Name of Resident: Henry Giron ATTENDING PHYSICIAN STATEMENT I saw and evaluated the patient. I reviewed the resident's note and discussed the case with the resident. I agree with the resident's findings and plan as documented. SUBJECTIVE: OBJECTIVE: ASSESSMENT AND PLAN: patient is doing well she has no active issues she is to be kept NPO for possible toe amputation Problem List - Problems (1) Hypertension Code(s): I10 - ESSENTIAL (PRIMARY) HYPERTENSION Qualifiers: Hypertension type: essential hypertension Qualified Code(s): I10 - Essential (primary) hypertension; I10 - Essential (primary) hypertension; I10 - Essential (primary) hypertension (2) Diabetes Code(s): E11.9 - TYPE 2 DIABETES MELLITUS WITHOUT COMPLICATIONS Qualifiers: Diabetes mellitus type: type 2 Diabetes mellitus complication status: with neurologic complications Diabetes mellitus pecan gatherer insulin use: unspecified pecan gatherer insulin use status (3) Diabetic ulcer of left foot Code(s): E11.621 - TYPE 2 DIABETES MELLITUS WITH FOOT ULCER L97.529 - NON-PRESSURE CHRONIC ULCER OTH PRT LEFT FOOT W UNSP SEVERITY Qualifiers: Diabetic foot ulcer location: toe Diabetes mellitus type: type 2 Non-pressure ulcer stage: with necrosis of bone Qualified Code(s): E11.621 - Type 2 diabetes mellitus with foot ulcer; E11.621 - Type 2 diabetes mellitus with foot ulcer; E11.621 - Type 2 diabetes mellitus with foot ulcer; E11.621 - Type 2 diabetes mellitus with foot ulcer; L97.529 - Non-pressure chronic ulcer of other part of left foot with unspecified severity; L97.529 - Non-pressure chronic ulcer of other part of left foot with unspecified severity ; L97.529 - Non-pressure chronic ulcer of other part of left foot with unspecified severity; L97.529 - Non-pressure chronic ulcer of other part of left foot with unspecified severity
[2017-04-03] MEDS: ATORVASTATIN CA 20 MG TABLET (FP) PO SCH (22:41)
[2017-04-04] MEDS: INSULIN SLIDING SCALE (NOVOLOG) 1 VIAL SQ SCH ×3 (07:20→16:34)
[2017-04-04] MEDS ORDERED: INSULIN DETEMIR 100 UNITS/ML MDV SQ ONE (09:54)
[2017-04-04] MEDS ORDERED: VANCOMYCIN 1,000 MG in DEXTROSE 5%-WATER - 250 ML IVPB SCH (10:00)
[2017-04-04] MEDS ORDERED: ERTAPENEM SODIUM 1 GM/50 ML PRE-DOCKED IVPB SCH (10:00)
[2017-04-04] MEDS ORDERED: VANCOMYCIN 1,250 MG in DEXTROSE 5%-WATER - 250 ML IVPB SCH (10:00)
[2017-04-04] MEDS ORDERED: PT OWN MED DRAWER 7, Y5N ONE ×2 (10:31→15:13)
[2017-04-04] MEDS: INSULIN DETEMIR 100 UNITS/ML MDV SQ SCH ×2 (10:32→23:37)
[2017-04-04] MEDS: METOPROLOL SUCCINATE 25 MG TAB.SR.24H (FP) PO SCH (10:34)
[2017-04-04] MEDS: amLODIPine BESYLATE 10 MG TABLET (FP) PO SCH (10:34)
[2017-04-04] MEDS: LISINOPRIL 20 MG TABLET (FP) PO SCH (10:34)
[2017-04-04] MEDS: CLOPIDOGREL BISULFATE 75 MG TABLET (FP) PO SCH (10:35)
[2017-04-04] MEDS ORDERED: PICC LINE 8 ML FLUSH PROTOCOL IVPUSH PRN (11:20)
[2017-04-04] MEDS: ERTAPENEM SODIUM 1 GM in SODIUM CHLORIDE 50 ML IVPB SCH (11:39)
[2017-04-04] MEDS: MUPIROCIN 2% TOPICAL OINTMENT 22 GM TUBE TP SCH (11:45)
--- NOTE | 2017-04-04 12:27 | PN ---
Progress Note, Physician History of Present Illness: stable no issues - Current Medication List Current Medications: Active Medications Acetaminophen (Tylenol -) 650 mg PO Q6H PRN PRN Reason: FEVER OR PAIN Amlodipine Besylate (Norvasc -) 10 mg PO DAILY [facility] Last Admin: 04/04/17 10:34 Dose: 10 mg Atorvastatin Calcium (Lipitor -) 20 mg PO HS [facility] Last Admin: 04/03/17 22:41 Dose: 20 mg Clopidogrel Bisulfate (Plavix -) 75 mg PO DAILY [facility] Last Admin: 04/04/17 10:35 Dose: 75 mg Fentanyl (Sublimaze Injection -) 50 mcg IVPUSH [id number] PRN PRN Reason: PAIN Stop: 04/04/17 19:23 Heparin Sodium (Porcine) (Heparin -) 5,000 unit SQ TID [facility] Last Admin: 04/03/17 22:41 Dose: 5,000 unit IV Flush (Picc Line Flush) 8 ml IVPUSH PRN PRN PRN Reason: Protocol Ertapenem 1 gm/ Sodium (Chloride) 50 mls @ 100 mls/hr IVPB DAILY [facility] Last Admin: 04/04/17 11:39 Dose: 100 mls/hr Vancomycin HCl 1,250 mg/ (Dextrose) 250 mls @ 166.667 mls/hr IVPB DAILY@1600 [facility] PRN Reason: Protocol Insulin Aspart (Novolog Vial Sliding Scale -) 1 vial SQ TIDAC [facility] PRN Reason: Protocol Last Admin: 04/04/17 11:43 Dose: 8 units Insulin Detemir (Levemir Vial) 37 units SQ HS [facility] Last Admin: 04/03/17 22:41 Dose: 37 units Insulin Detemir (Levemir Vial) 37 units SQ AM [facility] Last Admin: 04/04/17 10:32 Dose: Not Given Lisinopril (Prinivil) 40 mg PO DAILY [facility] Last Admin: 04/04/17 10:34 Dose: 40 mg Metoprolol Succinate (Toprol Xl -) 25 mg PO DAILY [facility] Last Admin: 04/04/17 10:34 Dose: 25 mg Mupirocin (Bactroban 2% Ointment -) 1 applic TP Q48H [facility] Last Admin: 04/04/17 11:45 Dose: 1 applic - Objective Vital Signs: Vital Signs Temperature 97.8 F 04/04/17 10:00 Pulse Rate 56 L 04/04/17 10:00 Respiratory Rate 18 04/04/17 10:00 Blood Pressure 149/62 04/04/17 10:00 O2 Sat by Pulse Oximetry (%) 96 04/03/17 21:00 Constitutional: Yes: No Distress, Calm Cardiovascular: Yes: Regular Rate and Rhythm Respiratory: Yes: Regular, CTA Bilaterally Gastrointestinal: Yes: Normal Bowel Sounds, Soft Musculoskeletal: Yes: Other Extremities: Yes: Other Neurological: Yes: Alert, Oriented Psychiatric: Yes: Alert, Oriented Labs: CBC, BMP 04/03/17 08:34 04/03/17 08:34 Assessment/Plan #left 4th distal toe ruptured blister and plantar ulcer osteomylitis #IDDM #HLD plan continue abx will discuss with the team further plans
--- NOTE | 2017-04-04 16:26 | PN ---
Physical Exam: SUBJECTIVE: Patient seen and examined. No acute events overnight. Pt reports no toe pain, fevers, chills, chest pain, SOB, n/v/d/c, urinary symptoms, or leg pain. OBJECTIVE: Vital Signs Period Temp Pulse Resp BP Sys/Cormier Pulse Ox Last 24 Hr 97.8 F-98.5 F 20-63 18-20 125-155/58-69 96-96 GENERAL: The patient is awake, alert, and fully oriented, in no acute distress. HEAD: Normal with no signs of trauma. EYES: PERRL, extraocular movements intact, sclera anicteric, conjunctiva clear. No ptosis. ENT: Ears normal, nares patent, oropharynx clear without exudates, moist mucous membranes. NECK: Trachea midline, full range of motion, supple. LUNGS: Breath sounds equal, clear to auscultation bilaterally, no wheezes, no crackles, no accessory muscle use. HEART: Regular rate and rhythm, S1, S2 without murmur, rub or gallop. ABDOMEN: Soft, nontender, nondistended, normoactive bowel sounds, no guarding, no rebound, no hepatosplenomegaly, no masses. EXTREMITIES: L 4th toe has healing plantar abscess/ulcer w/o any purulence able to be expressed, NT NEUROLOGICAL: Cranial nerves II through XII grossly intact. Normal speech, gait not observed. PSYCH: Normal mood, normal affect. Laboratory Results - last 24 hr 04/03/17 04/03/17 04/04/17 16:20 22:43 06:40 POC Glucometer 248 206 150 04/04/17 11:42 POC Glucometer 318 Active Medications Generic Name Dose Route Start Last Admin Trade Name Freq PRN Reason Stop Dose Admin Acetaminophen 650 mg 04/01/17 20:01 Tylenol - PO Q6H PRN FEVER OR PAIN Amlodipine Besylate 10 mg 04/02/17 10:00 04/04/17 10:34 Norvasc - PO 10 mg DAILY [facility] Administration Atorvastatin Calcium 20 mg 04/01/17 22:00 04/03/17 22:41 Lipitor - PO 20 mg HS [facility] Administration Clopidogrel Bisulfate 75 mg 04/01/17 19:30 04/04/17 10:35 Plavix - PO 75 mg DAILY [facility] Administration Fentanyl 50 mcg 04/01/17 19:22 Sublimaze Injection - IVPUSH 04/04/17 19:23 [id number] PRN PAIN Heparin Sodium (Porcine) 5,000 unit 04/01/17 22:00 04/03/17 22:41 Heparin - SQ 5,000 unit TID [facility] Administration IV Flush 8 ml 04/04/17 11:20 Picc Line Flush IVPUSH PRN PRN Protocol Ertapenem 1 gm/ Sodium 50 mls @ 100 mls/hr 04/04/17 10:00 04/04/17 11:39 Chloride IVPB 100 mls/hr DAILY [facility] Administration Vancomycin HCl 1,250 mg/ 250 mls @ 166.667 mls/hr 04/04/17 16:00 Dextrose IVPB DAILY@1600 [facility] Protocol Insulin Aspart 1 vial 04/02/17 07:00 04/04/17 11:43 Novolog Vial Sliding Scale - SQ 8 units TIDAC [facility] Administration Protocol Insulin Detemir 37 units 04/01/17 22:00 04/03/17 22:41 Levemir Vial SQ 37 units HS [facility] Administration Insulin Detemir 37 units 04/02/17 07:00 04/04/17 10:32 Levemir Vial SQ Not Given AM [facility] Lisinopril 40 mg 04/02/17 10:00 04/04/17 10:34 Prinivil PO 40 mg DAILY [facility] Administration Metoprolol Succinate 25 mg 04/03/17 10:00 04/04/17 10:34 Toprol Xl - PO 25 mg DAILY [facility] Administration Mupirocin 1 applic 04/02/17 11:45 04/04/17 11:45 Bactroban 2% Ointment - TP 1 applic Q48H [facility] Administration Wound Cx: Eikenella Corrodens and Capnocytophaga ASSESSMENT/PLAN: 82F hx of HTN and IDDM presenting with acute left 4th distal toe pain, found to have hypertensive urgency of 190/67 and a left 4th toe ruptured abscess complicated by osteomyelitis, currently being treated with vancomycin and ertapenem, awaiting cultures and sensitivities. #left 4th distal toe abscess complicated by osteomyelitis -MRI foot: osteomyelitis -ID on board, mariela Brand appreciated. Awaiting his re-evaluation of the antibiotic regimen given the specific organisms growing -continue ertapenem (day 1) and vancomycin (day 9) for now -vascular on board, Dr. Ferrell. recs appreciated -podiatry on board, appreciated recs for pt to go home on PICC with IV abx and aggressive wound care, and if infection does not resolve, will get partial amputation. -pt to get PICC placement today -APAP for pain or temp #HTN -continue lisinopril 40mg qd, HCTZ 25mg, metoprolol 25, and amlodipine 10 -monitor BP. If low, will d/c amlodipine. #IDDM -ISS, BGM ACHS -a1c of 7.3 -continue levemir 37U BID #HLD -continue atorvastatin 20mg qd #PAD -continue plavix 75 #FEN/PPx -no more fluids -electrolytes wnl -diabetic diet -no GI ppx -heparin 5,000U TID -Mo Chadwick MD PGY1 Visit type - Emergency Visit Emergency Visit: Yes ED Registration Date: 03/27/17 Care time: The patient presented to the Emergency Department on the above date and was hospitalized for further evaluation of their emergent condition. - New Patient This patient is new to me today: No - Critical Care Critical Care patient: No
[2017-04-04] MEDS: VANCOMYCIN 1,250 MG in DEXTROSE 5%-WATER - 250 ML IVPB SCH (16:32)
--- NOTE | 2017-04-04 17:18 | PN ---
Teaching Attending Note Name of Resident: Mo Chadwick ATTENDING PHYSICIAN STATEMENT I saw and evaluated the patient. I reviewed the resident's note and discussed the case with the resident. I agree with the resident's findings and plan as documented. SUBJECTIVE: c/o pain LLE no abdominal pain OBJECTIVE: Vital Signs Temperature 98.2 F 04/04/17 14:00 Pulse Rate 65 04/04/17 14:00 Respiratory Rate 18 04/04/17 14:00 Blood Pressure 144/69 04/04/17 14:00 O2 Sat by Pulse Oximetry (%) 96 04/04/17 09:00 LUNGS: Breath sounds equal, clear to auscultation bilaterally, no wheezes, no crackles, HEART: Regular rate and rhythm, S1, S2 without murmur, rub or gallop. ABDOMEN: Soft, nontender, nondistended, normoactive bowel sounds, no guarding, no rebound, no hepatosplenomegaly, no masses. EXTREMITIES: L 4th toe has healing plantar abscess/ulcer w/o any purulence able to be expressed, NT NEUROLOGICAL: Cranial nerves II through XII grossly intact. Normal speech, gait not CBC, BMP 04/03/17 08:34 04/03/17 08:34 ASSESSMENT AND PLAN: #left 4th distal toe abscess complicated by osteomyelitis, confirmed by MRI PICC line was placed today and we need clear instructions from ID regarding IV antibiotics and length of treatment This was discussed with Dr Pennington and he agrees to follow up and update once choice of IVAB is made we can d/c #HTN -continue lisinopril 40mg qd, HCTZ 25mg, metoprolol 25, and amlodipine 10 -monitor BP. If low, will d/c amlodipine. #IDDM -ISS, BGM ACHS -a1c of 7.3 -continue levemir 37U BID D/C plan in am with IVAB
[2017-04-04] MEDS: ATORVASTATIN CA 20 MG TABLET (FP) PO SCH (23:37)
[2017-04-05] MEDS: INSULIN SLIDING SCALE (NOVOLOG) 1 VIAL SQ SCH ×3 (06:11→16:34)
[2017-04-05] MEDS: INSULIN DETEMIR 100 UNITS/ML MDV SQ SCH ×2 (06:13→22:27)
[2017-04-05 07:48] LABS: BASOPHIL 0.8 % (0-2.0); EOSINOPHIL 4.3 % (0-4.5); MCH 25.6 pg (25.7-33.7); MCHC 32.2 g/dl (32.0-36.0); MEAN CELL VOLUME 79.6 fl (80-96); MEAN PLT VOLUME 11.5 fl (7.5-11.1); NEUTROPHILS 61.3 % (42.8-82.8); PLATELET COUNT 191 K/MM3 (134-434); WHITE BLOOD COUNT 9.8 K/mm3 (4.0-10.0)
[2017-04-05 08:12] LABS: ANION GAP 6 (8-16); CALCIUM 8.8 mg/dL (8.5-10.1); CO2 28 mmol/L (21-32); CREATININE 1.1 mg/dL (0.55-1.02); GLUCOSE,RANDOM 196 mg/dL (74-106)
--- NOTE | 2017-04-05 09:45 | PN ---
Progress Note, Physician History of Present Illness: stable patient toe looked at again discharging pus will d/w - Current Medication List Current Medications: Active Medications Acetaminophen (Tylenol -) 650 mg PO Q6H PRN PRN Reason: FEVER OR PAIN Amlodipine Besylate (Norvasc -) 10 mg PO DAILY [facility] Last Admin: 04/04/17 10:34 Dose: 10 mg Atorvastatin Calcium (Lipitor -) 20 mg PO HS [facility] Last Admin: 04/04/17 23:37 Dose: 20 mg Clopidogrel Bisulfate (Plavix -) 75 mg PO DAILY [facility] Last Admin: 04/04/17 10:35 Dose: 75 mg Heparin Sodium (Porcine) (Heparin -) 5,000 unit SQ TID [facility] Last Admin: 04/03/17 22:41 Dose: 5,000 unit Hydrochlorothiazide (Hctz -) 25 mg PO BID [facility] IV Flush (Picc Line Flush) 8 ml IVPUSH PRN PRN PRN Reason: Protocol Ertapenem 1 gm/ Sodium (Chloride) 50 mls @ 100 mls/hr IVPB DAILY [facility] Last Admin: 04/04/17 11:39 Dose: 100 mls/hr Vancomycin HCl 1,250 mg/ (Dextrose) 250 mls @ 166.667 mls/hr IVPB DAILY@1600 [facility] PRN Reason: Protocol Last Admin: 04/04/17 16:32 Dose: 166.667 mls/hr Insulin Aspart (Novolog Vial Sliding Scale -) 1 vial SQ TIDAC [facility] PRN Reason: Protocol Last Admin: 04/05/17 06:11 Dose: 2 units Insulin Detemir (Levemir Vial) 37 units SQ HS [facility] Last Admin: 04/04/17 23:37 Dose: 37 units Insulin Detemir (Levemir Vial) 37 units SQ AM [facility] Last Admin: 04/05/17 06:13 Dose: 37 units Lisinopril (Prinivil) 40 mg PO DAILY [facility] Last Admin: 04/04/17 10:34 Dose: 40 mg Metoprolol Succinate (Toprol Xl -) 25 mg PO DAILY [facility] Last Admin: 04/04/17 10:34 Dose: 25 mg Mupirocin (Bactroban 2% Ointment -) 1 applic TP Q48H [facility] Last Admin: 04/04/17 11:45 Dose: 1 applic - Objective Vital Signs: Vital Signs Temperature 98.3 F 04/05/17 09:08 Pulse Rate 60 04/05/17 09:08 Respiratory Rate 18 04/05/17 09:08 Blood Pressure 147/63 04/05/17 09:08 O2 Sat by Pulse Oximetry (%) 98 04/04/17 21:00 Constitutional: Yes: No Distress, Calm Neck: Yes: Supple Respiratory: Yes: Regular, CTA Bilaterally Gastrointestinal: Yes: Normal Bowel Sounds, Soft Musculoskeletal: Yes: WNL Extremities: Yes: Other Neurological: Yes: Alert, Oriented Psychiatric: Yes: Alert, Oriented Labs: CBC, BMP 04/05/17 06:00 04/05/17 06:00 Assessment/Plan #left 4th distal toe ruptured blister and plantar ulcer osteomylitis #IDDM #HLD plan continue abx patient needs further debridement will d/w podiatry rest as per primary
[2017-04-05] MEDS ORDERED: PT OWN MED DRAWER 7, Y5N ONE (10:17)
[2017-04-05] MEDS: ERTAPENEM SODIUM 1 GM in SODIUM CHLORIDE 50 ML IVPB SCH (10:20)
[2017-04-05] MEDS: HYDROCHLOROTHIAZIDE 25 MG TABLET (FP) PO SCH ×2 (10:20→22:26)
[2017-04-05] MEDS: amLODIPine BESYLATE 10 MG TABLET (FP) PO SCH (10:21)
[2017-04-05] MEDS: METOPROLOL SUCCINATE 25 MG TAB.SR.24H (FP) PO SCH (10:21)
[2017-04-05] MEDS: LISINOPRIL 20 MG TABLET (FP) PO SCH (10:21)
[2017-04-05] MEDS: CLOPIDOGREL BISULFATE 75 MG TABLET (FP) PO SCH (10:21)
--- NOTE | 2017-04-05 14:09 | PN ---
Physical Exam: SUBJECTIVE: Patient seen and examined No acute events overnight. Pt reports no toe pain, fevers, chills, chest pain, SOB, n/v/d/c, urinary symptoms, or leg pain. OBJECTIVE: Vital Signs Period Temp Pulse Resp BP Sys/Cormier Pulse Ox Last 24 Hr 98.1 F-98.4 F 60-69 18-20 140-175/61-74 98 GENERAL: The patient is awake, alert, and fully oriented, in no acute distress. HEAD: Normal with no signs of trauma. EYES: PERRL, extraocular movements intact, sclera anicteric, conjunctiva clear. No ptosis. ENT: Ears normal, nares patent, oropharynx clear without exudates, moist mucous membranes. NECK: Trachea midline, full range of motion, supple. LUNGS: Breath sounds equal, clear to auscultation bilaterally, no wheezes, no crackles, no accessory muscle use. HEART: Regular rate and rhythm, S1, S2 without murmur, rub or gallop. ABDOMEN: Soft, nontender, nondistended, normoactive bowel sounds, no guarding, no rebound, no hepatosplenomegaly, no masses. EXTREMITIES: L 4th toe has healing plantar abscess/ulcer with yellow purulence able to be expressed, NT NEUROLOGICAL: Cranial nerves II through XII grossly intact. Normal speech, gait not observed. PSYCH: Normal mood, normal affect. Laboratory Results - last 24 hr 04/04/17 04/04/17 04/05/17 16:33 23:35 06:00 WBC 9.8 RBC 5.09 Hgb 13.0 Hct 40.5 MCV 79.6 L MCH 25.6 L MCHC 32.2 RDW 16.0 H Plt Count 191 MPV 11.5 H D Neutrophils % 61.3 Lymphocytes % 23.9 Monocytes % 9.7 Eosinophils % 4.3 Basophils % 0.8 Sodium Potassium Chloride Carbon Dioxide Anion Gap BUN Creatinine POC Glucometer 244 231 Random Glucose Calcium 04/05/17 04/05/17 04/05/17 06:00 06:02 11:50 WBC RBC Hgb Hct MCV MCH MCHC RDW Plt Count MPV Neutrophils % Lymphocytes % Monocytes % Eosinophils % Basophils % Sodium 137 Potassium 4.0 Chloride 103 Carbon Dioxide 28 Anion Gap 6 L BUN 25 H Creatinine 1.1 H POC Glucometer 195 194 Random Glucose 196 H Calcium 8.8 Active Medications Generic Name Dose Route Start Last Admin Trade Name Wichoq PRN Reason Stop Dose Admin Acetaminophen 650 mg 04/01/17 20:01 Tylenol - PO Q6H PRN FEVER OR PAIN Amlodipine Besylate 10 mg 04/02/17 10:00 04/05/17 10:21 Norvasc - PO 10 mg DAILY [facility] Administration Atorvastatin Calcium 20 mg 04/01/17 22:00 04/04/17 23:37 Lipitor - PO 20 mg HS [facility] Administration Clopidogrel Bisulfate 75 mg 04/01/17 19:30 04/05/17 10:21 Plavix - PO 75 mg DAILY [facility] Administration Heparin Sodium (Porcine) 5,000 unit 04/01/17 22:00 04/03/17 22:41 Heparin - SQ 5,000 unit TID [facility] Administration Hydrochlorothiazide 25 mg 04/05/17 10:00 04/05/17 10:20 Hctz - PO 25 mg BID [facility] Administration IV Flush 8 ml 04/04/17 11:20 Picc Line Flush IVPUSH PRN PRN Protocol Ertapenem 1 gm/ Sodium 50 mls @ 100 mls/hr 04/04/17 10:00 04/05/17 10:20 Chloride IVPB 100 mls/hr DAILY [facility] Administration Vancomycin HCl 1,250 mg/ 250 mls @ 166.667 mls/hr 04/04/17 16:00 04/04/17 16:32 Dextrose IVPB 166.667 mls/hr DAILY@1600 [facility] Administration Protocol Insulin Aspart 1 vial 04/02/17 07:00 04/05/17 12:07 Novolog Vial Sliding Scale - SQ 2 units TIDAC [facility] Administration Protocol Insulin Detemir 37 units 04/01/17 22:00 04/04/17 23:37 Levemir Vial SQ 37 units HS [facility] Administration Insulin Detemir 37 units 04/02/17 07:00 04/05/17 06:13 Levemir Vial SQ 37 units AM [facility] Administration Lisinopril 40 mg 04/02/17 10:00 04/05/17 10:21 Prinivil PO 40 mg DAILY [facility] Administration Metoprolol Succinate 25 mg 04/03/17 10:00 04/05/17 10:21 Toprol Xl - PO 25 mg DAILY [facility] Administration Mupirocin 1 applic 04/02/17 11:45 04/04/17 11:45 Bactroban 2% Ointment - TP 1 applic Q48H [facility] Administration ASSESSMENT/PLAN: 82F hx of HTN and IDDM presenting with acute left 4th distal toe pain, found to have hypertensive urgency of 190/67 and a left 4th toe ruptured abscess complicated by osteomyelitis, currently being treated with vancomycin and ertapenem, awaiting cultures and sensitivities. #left 4th distal toe abscess complicated by osteomyelitis -MRI foot: osteomyelitis -ID on board, mariela Brand appreciated. Awaiting his re-evaluation of the antibiotic regimen given the specific organisms growing. At this time, he does not believe pt is ready for discharge home. -continue ertapenem (day 2) and vancomycin (day 10) for now -s/p angioplasty of left peroneal artery, vascular on board, Dr. Ferrell. kemis appreciated -podiatry on board, appreciated recs for pt to go home on PICC with IV abx and aggressive wound care, and if infection does not resolve, will get partial amputation. Attempt made to contact Dr. Ricketts at around 2pm regarding re- debridement of abscess, message left with medical secretary. -PICC placed yesterday -APAP for pain or temp #HTN -continue lisinopril 40mg qd, HCTZ 25mg, metoprolol 25, and amlodipine 10 -monitor BP. If low, will d/c amlodipine. #IDDM -ISS, BGM ACHS -a1c of 7.3 -continue levemir 37U BID #HLD -continue atorvastatin 20mg qd #PAD -continue plavix 75 #FEN/PPx -no more fluids -electrolytes wnl -diabetic diet -no GI ppx -heparin 5,000U TID -Mo Chadwick MD PGY1 Visit type - Emergency Visit Emergency Visit: Yes ED Registration Date: 03/27/17 Care time: The patient presented to the Emergency Department on the above date and was hospitalized for further evaluation of their emergent condition. - New Patient This patient is new to me today: No - Critical Care Critical Care patient: No
--- NOTE | 2017-04-05 15:02 | PN ---
Teaching Attending Note Name of Resident: Mo Chadwick ATTENDING PHYSICIAN STATEMENT I saw and evaluated the patient. I reviewed the resident's note and discussed the case with the resident. I agree with the resident's findings and plan as documented. SUBJECTIVE: No complaints. OBJECTIVE: Vital Signs Period Temp Pulse Resp BP Sys/Cormier Pulse Ox Last 24 Hr 98.1 F-98.4 F 60-69 18-20 140-175/61-74 98 HEART: S1S2, RRR LUNGS: Clear ABDOMEN: Soft, non-tender, non-distended, normal BS EXTREMITIES: No edema. Ulcer of plantar surface of left 4th toe with purulent drainage Current Medications Generic Name Dose Route Start Last Admin Trade Name Freq PRN Reason Stop Dose Admin Acetaminophen 650 mg 04/01/17 20:01 Tylenol - PO Q6H PRN FEVER OR PAIN Amlodipine Besylate 10 mg 04/02/17 10:00 04/05/17 10:21 Norvasc - PO 10 mg DAILY TYE Administration Atorvastatin Calcium 20 mg 04/01/17 22:00 04/04/17 23:37 Lipitor - PO 20 mg HS TYE Administration Clopidogrel Bisulfate 75 mg 04/01/17 19:30 04/05/17 10:21 Plavix - PO 75 mg DAILY TYE Administration Heparin Sodium (Porcine) 5,000 unit 04/01/17 22:00 04/03/17 22:41 Heparin - SQ 5,000 unit TID TYE Administration Hydrochlorothiazide 25 mg 04/05/17 10:00 04/05/17 10:20 Hctz - PO 25 mg BID TYE Administration IV Flush 8 ml 04/04/17 11:20 Picc Line Flush IVPUSH PRN PRN Protocol Ertapenem 1 gm/ Sodium 50 mls @ 100 mls/hr 04/04/17 10:00 04/05/17 10:20 Chloride IVPB 100 mls/hr DAILY TYE Administration Vancomycin HCl 1,250 mg/ 250 mls @ 166.667 mls/hr 04/04/17 16:00 04/04/17 16:32 Dextrose IVPB 166.667 mls/hr DAILY@1600 TYE Administration Protocol Insulin Aspart 1 vial 04/02/17 07:00 04/05/17 12:07 Novolog Vial Sliding Scale - SQ 2 units TIDAC TYE Administration Protocol Insulin Detemir 37 units 04/01/17 22:00 04/04/17 23:37 Levemir Vial SQ 37 units HS TYE Administration Insulin Detemir 37 units 04/02/17 07:00 04/05/17 06:13 Levemir Vial SQ 37 units AM TYE Administration Lisinopril 40 mg 04/02/17 10:00 04/05/17 10:21 Prinivil PO 40 mg DAILY TYE Administration Metoprolol Succinate 25 mg 04/03/17 10:00 04/05/17 10:21 Toprol Xl - PO 25 mg DAILY TYE Administration Mupirocin 1 applic 04/02/17 11:45 04/04/17 11:45 Bactroban 2% Ointment - TP 1 applic Q48H TYE Administration ASSESSMENT AND PLAN: 1. Left 4th toe ulcer and abscess with osteomyelitis - Continue Invanz, Vancomycin - Podiatry follow-up 2. HTN - Continue Norvasc, Lisinopril, Toprol XL, HCTZ 3. Hyperlipidemia - Continue Lipitor 4. Type 2 DM - Continue Levemir, Novolog sliding scale
--- NOTE | 2017-04-05 15:28 | PN ---
Progress Note (short form) - Note Progress Note: Podiatry F/U: Seen/evaluated at bedside, NAD. Pain well controlled, denies F/V/N/c/SOB/CP. S /p LLE angiogram with Dr. Ferrell, has only one vessel runoff to foot. Has osteomyelitis L 4th digit. Currently afebrile, VSS. JEREMIAH:' L foot: pedal pulses non-palpable, TG wnl. Distal tuft ulcer L 4th digit with minimal purulence, no fluctuance, probes deep, no soft tissue crepitus, no streaking cellulitis, no acute signs of infection. Minimal tenderness to palpation. MRI: (+) osteomyelitis distal phalanx 4th digit L foot Imp: 82 year old DM F with L 4th digit ulcer, osteomyelitis 1. Excisional debridement performed at bedside to subcutaneous tissue using #15 blade scalpel. All purulence expressed from ulcer site. 2. C/w local wound care with bactroban. 3. C/w IV abx per Infectious Disease. 4. Patient not vascular cleared for podiatric surgery given one vessel runoff. Hopefully with local wound care and HBO she will heal. 5. PICC line and IV abx for treatment of osteomyelitis. Natasha Ricketts DPM
[2017-04-05] MEDS: VANCOMYCIN 1,250 MG in DEXTROSE 5%-WATER - 250 ML IVPB SCH (17:47)
[2017-04-05] MEDS: ATORVASTATIN CA 20 MG TABLET (FP) PO SCH (22:26)
[2017-04-06] MEDS: INSULIN SLIDING SCALE (NOVOLOG) 1 VIAL SQ SCH ×3 (06:18→15:44)
[2017-04-06] MEDS: INSULIN DETEMIR 100 UNITS/ML MDV SQ SCH (06:25)
[2017-04-06] MEDS ORDERED: PT OWN MED DRAWER 7, Y5N ONE (10:24)
[2017-04-06] MEDS: METOPROLOL SUCCINATE 25 MG TAB.SR.24H (FP) PO SCH (10:36)
[2017-04-06] MEDS: amLODIPine BESYLATE 10 MG TABLET (FP) PO SCH (10:36)
[2017-04-06] MEDS: CLOPIDOGREL BISULFATE 75 MG TABLET (FP) PO SCH (10:36)
[2017-04-06] MEDS: HYDROCHLOROTHIAZIDE 25 MG TABLET (FP) PO SCH (10:37)
[2017-04-06] MEDS: LISINOPRIL 20 MG TABLET (FP) PO SCH (10:37)
[2017-04-06] MEDS: ERTAPENEM SODIUM 1 GM in SODIUM CHLORIDE 50 ML IVPB SCH (10:38)
--- NOTE | 2017-04-06 11:15 | PN ---
Progress Note (short form) - Note Progress Note: Podiatry F/u: Seen/evaluated at bedside, NAD. Pain controlled, denies F/V/N/C/SOB/CP. S/p LLE angiogram with Dr. Ferrell. Plan is to treat osteomyelitis conservatively with course of IV abx. Currently afebrile, VSS. JEREMIAH: L foot: distal tuft diabetic ulcer 4th digit with underlying granular base, probes deep to bone, no purulent drainage, serous drainage present, no fluctuance, no periwound erythema, no ascending cellulitis, no signs of active infection. Minimal tenderness to palpation. WBC: 9.8 Wound Cx: mixed species MRI L foot: (+) bone marrow edema 4th digit Imp: 82 year old IDDM F with L 4th toe diabetic ulcer, osteomyelitis 1. Continue with local wound care with bactroban + DSD L foot 2. IV abx per Infectious Disease 3. PICC line and home nursing services 4. Glycemic control 5. Okay for discharge from my standpoint, will f/u in wound healing center. Natasha Ricketts DPM
[2017-04-06 11:55] LABS: BASOPHIL 0.7 % (0-2.0); EOSINOPHIL 3.5 % (0-4.5); MCH 25.3 pg (25.7-33.7); MCHC 31.6 g/dl (32.0-36.0); MEAN CELL VOLUME 79.9 fl (80-96); MEAN PLT VOLUME 11.2 fl (7.5-11.1); NEUTROPHILS 64.8 % (42.8-82.8); PLATELET COUNT 204 K/MM3 (134-434); WHITE BLOOD COUNT 11.1 K/mm3 (4.0-10.0)
--- NOTE | 2017-04-06 13:40 | PN ---
Progress Note, Physician History of Present Illness: stable no issues debridement of the toe done - Current Medication List Current Medications: Active Medications Acetaminophen (Tylenol -) 650 mg PO Q6H PRN PRN Reason: FEVER OR PAIN Amlodipine Besylate (Norvasc -) 10 mg PO DAILY [facility] Last Admin: 04/06/17 10:36 Dose: 10 mg Atorvastatin Calcium (Lipitor -) 20 mg PO HS [facility] Last Admin: 04/05/17 22:26 Dose: 20 mg Clopidogrel Bisulfate (Plavix -) 75 mg PO DAILY [facility] Last Admin: 04/06/17 10:36 Dose: 75 mg Heparin Sodium (Porcine) (Heparin -) 5,000 unit SQ TID [facility] Last Admin: 04/03/17 22:41 Dose: 5,000 unit Hydrochlorothiazide (Hctz -) 25 mg PO BID [facility] Last Admin: 04/06/17 10:37 Dose: 25 mg IV Flush (Picc Line Flush) 8 ml IVPUSH PRN PRN PRN Reason: Protocol Last Admin: 04/06/17 06:25 Dose: 8 ml Ertapenem 1 gm/ Sodium (Chloride) 50 mls @ 100 mls/hr IVPB DAILY [facility] Last Admin: 04/06/17 10:38 Dose: 100 mls/hr Vancomycin HCl 1,250 mg/ (Dextrose) 250 mls @ 166.667 mls/hr IVPB DAILY@1600 TYE PRN Reason: Protocol Last Admin: 04/05/17 17:47 Dose: 166.667 mls/hr Insulin Aspart (Novolog Vial Sliding Scale -) 1 vial SQ TIDAC [facility] PRN Reason: Protocol Last Admin: 04/06/17 11:33 Dose: Not Given Insulin Detemir (Levemir Vial) 37 units SQ HS [facility] Last Admin: 04/05/17 22:27 Dose: 37 units Insulin Detemir (Levemir Vial) 37 units SQ AM [facility] Last Admin: 04/06/17 06:25 Dose: 37 units Lisinopril (Prinivil) 40 mg PO DAILY [facility] Last Admin: 04/06/17 10:37 Dose: 40 mg Metoprolol Succinate (Toprol Xl -) 25 mg PO DAILY [facility] Last Admin: 04/06/17 10:36 Dose: 25 mg Mupirocin (Bactroban 2% Ointment -) 1 applic TP Q48H [facility] Last Admin: 10/16/17 11:45 Dose: 1 applic - Objective Vital Signs: Vital Signs Temperature 97.7 F 04/06/17 06:00 Pulse Rate 56 L 04/06/17 06:00 Respiratory Rate 20 04/06/17 06:00 Blood Pressure 156/63 04/06/17 06:00 O2 Sat by Pulse Oximetry (%) 95 04/05/17 21:00 Constitutional: Yes: No Distress, Calm Cardiovascular: Yes: Regular Rate and Rhythm Respiratory: Yes: Regular, CTA Bilaterally Musculoskeletal: Yes: Other Neurological: Yes: Alert Psychiatric: Yes: Alert Labs: CBC, BMP 04/06/17 11:20 04/05/17 06:00 Assessment/Plan #left 4th distal toe ruptured blister and plantar ulcer osteomylitis #IDDM #HLD plan continue abx debridement done patient will need abx for another 4 weeks
--- NOTE | 2017-04-06 13:54 | PN ---
Teaching Attending Note Name of Resident: Mo Chadwick ATTENDING PHYSICIAN STATEMENT I saw and evaluated the patient. I reviewed the resident's note and discussed the case with the resident. I agree with the resident's findings and plan as documented. SUBJECTIVE: no fever or chills . has no pain in foot. no SOB OBJECTIVE: NAD, MMM, No JVD CV: RRR, 2/6 SM at RUSB and LUSB Lungs: no crackles , clear lungs Abd: obese , soft, NT, ND , nl BS Ext: no edema over legs. L foot with a wound on the plantar surface of 4th toe. when squeezed no thick serous flui came out . Assessment/Plan: 82 y/o pleasant lady with h/o HTN and IDDM who presented with a draining wound on L 4th toe. She was found to have infected wound with abscess. 1- L 4th toe infected wound with abscess formation and OM : s/p debridment wound cx reviewed. - cont Abx 4 more weeks - decision on abx choice pending . - - weekly CMP, CBC , CRP and vanco troughs while on Abx - f/u with Vascular, ID , and podiatry 2- HTN cont Norvasc, HCTZ, and lisinopril 3- IDDM : -cont levemir 37 BID - Cont SSI dipso : dc home today. VNS and IV abx to be arranged at home. spoke to daughter at bed side
--- NOTE | 2017-04-06 15:32 | DS ---
Physical Exam: SUBJECTIVE: Patient seen and examined No acute events overnight. Pt reports no toe pain, fevers, chills, chest pain, SOB, n/v/d/c, urinary symptoms, or leg pain. OBJECTIVE: Vital Signs Period Temp Pulse Resp BP Sys/Cormier Pulse Ox Last 24 Hr 97.7 F-98.3 F 56-60 20-20 143-159/63-74 95 PHYSICAL EXAM GENERAL: The patient is awake, alert, and fully oriented, in no acute distress. HEAD: Normal with no signs of trauma. EYES: PERRL, extraocular movements intact, sclera anicteric, conjunctiva clear. No ptosis. ENT: Ears normal, nares patent, oropharynx clear without exudates, moist mucous membranes. NECK: Trachea midline, full range of motion, supple. LUNGS: Breath sounds equal, clear to auscultation bilaterally, no wheezes, no crackles, no accessory muscle use. HEART: Regular rate and rhythm, S1, S2 without murmur, rub or gallop. ABDOMEN: Soft, nontender, nondistended, normoactive bowel sounds, no guarding, no rebound, no hepatosplenomegaly, no masses. EXTREMITIES: L 4th toe has healing plantar abscess/ulcer with serous drainage able to be expressed, NT NEUROLOGICAL: Cranial nerves II through XII grossly intact. Normal speech, gait not observed. PSYCH: Normal mood, normal affect. LABS Laboratory Results - last 24 hr 04/05/17 04/05/17 04/06/17 16:33 22:20 06:00 WBC RBC Hgb Hct MCV MCH MCHC RDW Plt Count MPV Neutrophils % Lymphocytes % Monocytes % Eosinophils % Basophils % POC Glucometer 232 160 Random Vancomycin 18.211 04/06/17 04/06/17 04/06/17 06:00 11:17 11:20 WBC 11.1 H RBC 5.09 Hgb 12.9 Hct 40.7 MCV 79.9 L MCH 25.3 L MCHC 31.6 L RDW 16.0 H Plt Count 204 MPV 11.2 H Neutrophils % 64.8 Lymphocytes % 20.2 Monocytes % 10.8 H Eosinophils % 3.5 Basophils % 0.7 POC Glucometer 137 142 Random Vancomycin MRI of left foot: osteomyelitis of left 4th toe Wound Cx of toe abscess: grew eikenella corrodens and capnocytophaga HOSPITAL COURSE: Date of Admission:03/27/17 Date of Discharge: 04/06/17 82F hx of HTN and IDDM who presented with acute left 4th distal toe pain, was found to have hypertensive urgency of 190/67 and a left 4th toe ruptured abscess complicated by osteomyelitis. Her blood pressure was controlled with HCTZ, lisinopril, metoprolol, and amlodipine. Her osteomyelitis was treated with vancomycin and ertapenem as well as excisional debridement and wound care. Pt underwent angiogram and angioplasty of left peroneal artery for an 80% stenosis. She had only 1-vessel runoff, and vascular surgery determined that she is not a good candidate for a partial amputation. As such, podiatry, ID, and vascular surgery agree that pt should receive 4 more weeks of ertapenem and vancomycin via PICC line with aggressive wound care. If pt fails treatment, she will be re-evaluated for partial amputation. Pt is stable, afebrile with normal vitals and no leukocytosis, and is ready for discharge home with services arranged to assist her with antibiotic administration and wound care. Pt instructed to follow up with ID, vascular surgery, podiatry, and PCP and to receive weekly CMP, CBC, CRP, and vancomycin trough levels. -Mo Chadwick MD PGY1 Minutes to complete discharge: 45 Discharge Summary Reason For Visit: DIABETIC ULCER OF LEFT FOOT Current Active Problems Abscess of toe (Acute) Osteomyelitis (Acute) Diabetes (Chronic) Hyperlipidemia (Chronic) Hypertension (Chronic) PAD (peripheral artery disease) (Chronic) Condition: Stable - Instructions Diet, Activity, Other Instructions: You were found to have an abscess (collection of pus) in your toe as well as an infection of the bone in your toe. You were seen by vascular surgery, infectious diseases, and podiatry. You were treated with IV antibiotics and wound debridement. You were found to have decreased blood supply in your left lower leg, and an angioplasty was performed to help open up your vessels. A PICC line was placed in your arm to allow you to continue to receive IV antibiotics at home. Continue to take the IV antibiotics called ertapenem and vancomycin for 4 more weeks. Services are set up to assist you with administration of the antibiotics as well with wound debridement. Make sure to receive weekly lab tests for a CBC, CRP, CMP, and Vancomycin trough. 1. Follow up with ID, Dr. Pennington, within two weeks. 2. Follow up with vascular surgery, Dr. Ferrell, within two weeks. 3. Follow up podiatry, Dr. Ricketts, within one week. 4. Follow up with your PCP within one week. If you don't have one, a referral was placed to Dr. Roth. If you develop any new, worsening, or concerning symptoms like fever, chills, shortness of breath, or chest pain, return to the ED. Referrals: David Roth MD [Staff Physician] - 1 Week Karen Pennington MD [Staff Physician] - 2 Weeks Randy Ricketts MD [Staff Physician] - 1 Week Juan Francisco Ferrell MD [Staff Physician] - 2 Weeks Disposition: VNS/HOME HEALTH CARE - Home Medications Comprehensive Discharge Medication List: Ambulatory Orders Acetaminophen [Tylenol .Extra-Strength -] PRN 03/27/17 Atorvastatin Calcium 20 mg PO 03/27/17 Hydrochlorothiazide 25 mg PO BID 03/27/17 Lisinopril [Prinivil -] 40 mg PO DAILY 03/27/17 Vitamin D3 03/27/17 Amlodipine Besylate [Norvasc -] 10 mg PO DAILY #30 tablet 04/06/17 Atorvastatin Ca [Lipitor] 20 mg PO HS tablet 04/06/17 Clopidogrel Bisulfate [Plavix -] 75 mg PO DAILY #30 tablet 04/06/17 Ertapenem Sodium [Invanz -] 1 gm IVPB DAILY 28 Days 04/06/17 Insulin (Levemir) [Levemir Vial] 37 units SQ AM ml 04/06/17 Insulin (Levemir) [Levemir Vial] 37 units SQ HS ml 04/06/17 Metoprolol Succinate [Toprol XL -] 25 mg PO DAILY #30 tab 04/06/17 Miscellaneous Drug Not In Syst [Outpatient Lab Test] 1 each ASDIR #4 misc Mupirocin Ointment [Bactroban 2% Ointment -] 1 applic TP Q48H #14 applic Picc Line Flush [Picc Line Flush -] 8 ml IVPUSH PRN PRN 28 Days 04/06/17 Vancomycin 1,250 mg IVPB DAILY@1600 28 Days 04/06/17 This patient is new to me today: No Emergency Visit: Yes ED Registration Date: 03/27/17 Care time: The patient presented to the Emergency Department on the above date and was hospitalized for further evaluation of their emergent condition. Critical Care patient: No - Discharge Referral Referred to [facility] No
[2017-04-06] MEDS: MUPIROCIN 2% TOPICAL OINTMENT 22 GM TUBE TP SCH (15:41)
[2017-04-06] MEDS: VANCOMYCIN 1,250 MG in DEXTROSE 5%-WATER - 250 ML IVPB SCH (15:41)
[2017-04-06 18:00] VITALS: BP 143/71; PULSE 60; TEMP 98.3
--- NOTE | 2017-04-12 13:58 | OP ---
DATE OF OPERATION: 04/01/2017 PREOPERATIVE DIAGNOSIS: Left 4th toe osteomyelitis. POSTOPERATIVE DIAGNOSIS: Left 4th toe osteomyelitis. PROCEDURE: Aortogram with lower extremity angiogram, peroneal artery angioplasty. FINDINGS: One-vessel runoff, peroneal artery, with 80% stenosis at the origin. SURGEON: Juan Francisco Mc DO ANESTHESIA: Fractional. BLOOD LOSS: 50 mL. The patient is a patient that has left 4th toe osteomyelitis. It has not been healing and Podiatry wants to do a partial amputation of the toe and they want vascular clearance. Due to the fact that she does not have any palpable pulses, she needs a diagnostic angiogram. Patient was consented for the procedure, understanding all risks, benefits, and alternatives. Patient taken to the operating room. Once in the operating room, laid on the operating table in the supine manner and the area of the right and left groin was prepped and draped in a sterile surgical manner. We then injected over the right common femoral artery. We then went ahead and punctured the right common femoral artery using a micropuncture needle. A micropuncture wire was inserted and a traditional 5-Hungarian sheath was inserted. We then placed a 0.035 floppy guidewire up into the aorta followed by an Omniflush catheter. We then shot an aortogram by hand injection, showing that the aorta and the iliac arteries were without any disease. We then placed a 0.035 stiff guidewire up and over. An Omniflush catheter followed. We then shot an angiogram of the left lower extremity, showing that the common femoral artery, the profunda, and the SFA were patent. The popliteal artery was patent, but patient had 1-vessel runoff which was the peroneal artery which had an 80% stenosis at the origin. At this point, we placed a 0.035 stiff guidewire into the SFA, removed our Omniflush guide, and placed a 6 x 45 crossover sheath. IV Heparin 5000 units were administered to the patient. We then went ahead and used a quick-cross catheter and using our 0.035 floppy guidewire we were able to bring our wire down to the peroneal artery. We were able to cross our lesion. We then exchanged the wire for an 0.014 wire. We then went ahead and used a 2.5 x 10 Ultraverse balloon and performed angioplasty of the origin of the peroneal artery. Completion angiogram now showed that the artery was patent. There was no recoil and there was good brisk flow going down into the foot. At this point, we brought our sheath up and over and StarClose device was successfully deployed in the right common femoral artery. Pressure was held for 5 minutes. There was no bleeding. The area was wet and dried and Dermabond was placed. The patient tolerated the procedure well with no complications. The patient transferred to PACU in stable condition. Total blood loss 50 mL. JUAN FRANCISCO MC DO [id number]
== END 2017-04-06 17:10 | disposition home health service (06) | DRG 951 ==
LOC: JER 23:37 → JERBED 03-27 02:57 → UNDOADMIN 03-27 03:01 → J5S 03-27 08:43 → J7W 04-01 21:03
PROVIDERS: ADMIT Internal Medicine; ATTEND Internal Medicine
PROC: 047T3Z1 Dilation of Right Peroneal Artery using Drug-Coated Balloon, Percutaneous Approach (ICD-10-PCS; principal; 2017-03-27)
PROC: 0JBR0ZZ Excision of Left Foot Subcutaneous Tissue and Fascia, Open Approach (ICD-10-PCS; 2017-03-29)
PROC: B41DZZZ Fluoroscopy of Aorta and Bilateral Lower Extremity Arteries (ICD-10-PCS; 2017-04-01)
DX: E10.621 Type 1 diabetes mellitus with foot ulcer (principal); M86.8X7 Other osteomyelitis, ankle and foot; E10.69 Type 1 diabetes mellitus with other specified complication; I70.291 Other atherosclerosis of native arteries of extremities, right leg; L02.612 Cutaneous abscess of left foot; N17.9 Acute kidney failure, unspecified; I10 Essential (primary) hypertension; B96.89 Other specified bacterial agents as the cause of diseases classified elsewhere; Z79.4 Long term (current) use of insulin; E78.5 Hyperlipidemia, unspecified; I16.0 Hypertensive urgency; B95.7 Other staphylococcus as the cause of diseases classified elsewhere
CPT/HCPCS: 36415; 36569; 71010-TC; 73630-TC-LT; 73718-LT; 75635-TC; 76000-TC; 77001-TC; 80048; 80053; 80061; 83036; 83721; 85025; 85651; 86140; 87040; 87070; 87077; 87205; 93925-TC; 94760; 99284-25; C1751; G0480; J1644

== ENCOUNTER 2018-01-16 11:22 | Emergency (ER) | payer OTHER ==
[2018-01-16 11:37] VITALS: TEMP 98.4; BMI 28.4
[2018-01-16 12:47] LABS: BASO % 0.9 % (0-2.0); EOS % 2.9 % (0-4.5); HEMATOCRIT 42.1 % (32.4-45.2); HEMOGLOBIN 13.7 GM/dL (10.7-15.3); LYMPH % 24.3 % (8-40); MCH 26.5 pg (25.7-33.7); MCHC 32.6 g/dl (32.0-36.0); MEAN CELL VOLUME 81.5 fl (80-96); MEAN PLT VOLUME 10.4 fl (7.5-11.1); MONO % 11.3 % (3.8-10.2); NEUT % 60.6 % (42.8-82.8); PLATELET COUNT 228 K/MM3 (134-434); RBC 5.17 M/mm3 (3.60-5.2); RDW 15.8 % (11.6-15.6); WHITE BLOOD COUNT 10.9 K/mm3 (4.0-10.0)
--- NOTE | 2018-01-16 13:00 | PDOC ---
History of Present Illness - General History Source: Patient Exam Limitations: No Limitations - History of Present Illness Initial Comments: 01/16/18 13:07 The patient is a 83 year old female, with a significant past medical history of HTN and DM, who presents to the emergency department with, 3 days of bilateral lower extremity swelling. As per patient, she has tried elevating her legs and an unknown medication, without relief. She denies any calf pain. She reports associated shortness of breath which she considers chronic in nature. She denies recent fevers, chills, headache or dizziness. She denies recent nausea, vomit, diarrhea or constipation. She denies recent dysuria, frequency, urgency or hematuria. She denies recent chest pain. Allergies: NKA Past surgical history: Left peroneal artery angioplasty. Social history: Nonsmoker. Denies EtOH use and recreational drug use. <Dalia Callahan - Last Filed: 01/16/18 13:07> <Mera Moon - Last Filed: 01/16/18 16:36> - General Chief Complaint: Edema Stated Complaint: SWOLLEN LEGS Time Seen by Provider: 01/16/18 11:58 Past History <Dalia Callahan - Last Filed: 01/16/18 13:07> - Past Medical History COPD: No Diabetes: Yes HTN: Yes - Suicide/Smoking/Psychosocial Hx Smoking History: Never smoked Have you smoked in the past 12 months: No Hx Alcohol Use: No Drug/Substance Use Hx: No Substance Use Type: None <Mera Moon - Last Filed: 01/16/18 16:36> - Past Medical History Allergies/Adverse Reactions: Allergies Allergy/AdvReac Type Severity Reaction Status Date / Time No Known Allergies Allergy Verified 01/16/18 11:33 Home Medications: Ambulatory Orders Acetaminophen [Tylenol .Extra-Strength -] 1,000 mg PO PRN 03/27/17 Hydrochlorothiazide 25 mg PO BID 03/27/17 Lisinopril [Prinivil -] 40 mg PO DAILY 03/27/17 Vitamin D3 1 tab PO DAILY 03/27/17 Amlodipine Besylate [Norvasc -] 10 mg PO DAILY #30 tablet 04/06/17 Atorvastatin Ca [Lipitor] 20 mg PO HS tablet 04/06/17 Clopidogrel Bisulfate [Plavix -] 75 mg PO DAILY #30 tablet 04/06/17 Metoprolol Succinate [Toprol XL -] 25 mg PO DAILY #30 tab 04/06/17 Miscellaneous Drug Not In Syst [Outpatient Lab Test] 1 each ASDIR #4 misc Gabapentin 300 mg PO HS 06/27/17 Novolin 70-30 100 Unit/ml Vial 45 units SCJ ACBK 06/27/17 Novolog Flexpen 45 units SCJ ACDIN 06/27/17 Review of Systems - Review of Systems Able to Perform ROS?: Yes Comments:: 01/16/18 13:07 GENERAL/CONSTITUTIONAL: No fever or chills. No weakness. HEAD, EYES, EARS, NOSE AND THROAT: No change in vision. No ear pain or discharge. No sore throat. CARDIOVASCULAR: No chest pain or shortness of breath. RESPIRATORY: No cough, wheezing, or hemoptysis. GASTROINTESTINAL: No nausea, vomiting, diarrhea or constipation. GENITOURINARY: No dysuria, frequency, or change in urination. MUSCULOSKELETAL: No joint or muscle swelling or pain. No neck or back pain. +EXTREMITIES: Bilateral lower extremity swelling. SKIN: No rash NEUROLOGIC: No headache, vertigo, loss of consciousness, or change in strength/ sensation. ENDOCRINE: No increased thirst. No abnormal weight change. HEMATOLOGIC/LYMPHATIC: No anemia, easy bleeding, or history of blood clots. ALLERGIC/IMMUNOLOGIC: No hives or skin allergy. All Other Systems: Reviewed and Negative <Dalia Callahan - Last Filed: 01/16/18 13:07> *Physical Exam - Vital Signs Last Vital Signs Temp Pulse Resp BP Pulse Ox 98.4 F 70 19 142/65 98 01/16/18 11:33 01/16/18 11:33 01/16/18 11:33 01/16/18 11:33 01/16/18 11:33 - Physical Exam Comments: 01/16/18 13:07 GENERAL: Awake, alert, and fully oriented, in no acute distress HEAD: No signs of trauma EYES: PERRLA, EOMI, sclera anicteric, conjunctiva clear ENT: Auricles normal inspection, hearing grossly normal, nares patent, oropharynx clear without exudates. Moist mucosa NECK: Normal ROM, supple, no lymphadenopathy, JVD, or masses LUNGS: Breath sounds equal, clear to auscultation bilaterally. No wheezes, and no crackles HEART: Regular rate and rhythm, normal S1 and S2, no murmurs, rubs or gallops ABDOMEN: Soft, nontender, normoactive bowel sounds. No guarding, no rebound. No masses +EXTREMITIES: +1 pitting edema to the bilateral mid-calf. Normal range of motion. No clubbing or cyanosis. No cords, erythema, or tenderness NEUROLOGICAL: Cranial nerves II through XII grossly intact. Normal speech, normal gait SKIN: Warm, Dry, normal turgor, no rashes or lesions noted. <Dalia Callahan - Last Filed: 01/16/18 13:07> - Vital Signs Last Vital Signs Temp Pulse Resp BP Pulse Ox 98.4 F 70 19 142/65 98 01/16/18 11:33 01/16/18 11:33 01/16/18 11:33 01/16/18 11:33 01/16/18 11:33 <Mera Moon - Last Filed: 01/16/18 16:36> ED Treatment Course - LABORATORY CBC & Chemistry Diagram: 01/16/18 12:36 01/16/18 12:36 - ADDITIONAL ORDERS Additional order review: 01/16/18 12:36 RBC 5.17 MCV 81.5 MCHC 32.6 RDW 15.8 H MPV 10.4 Neutrophils % 60.6 Lymphocytes % 24.3 D Monocytes % 11.3 H Eosinophils % 2.9 Basophils % 0.9 <Dalia Callahan - Last Filed: 01/16/18 13:07> - LABORATORY CBC & Chemistry Diagram: 01/16/18 12:36 01/16/18 12:36 - ADDITIONAL ORDERS Additional order review: 01/16/18 12:36 RBC 5.17 MCV 81.5 MCHC 32.6 RDW 15.8 H MPV 10.4 Neutrophils % 60.6 Lymphocytes % 24.3 D Monocytes % 11.3 H Eosinophils % 2.9 Basophils % 0.9 - RADIOLOGY Radiology Studies Ordered: Category Date Time Status CHEST X-RAY PORTABLE* [RAD] Stat Radiology 01/16/18 12:28 Ordered <Mera Moon - Last Filed: 01/16/18 16:36> Medical Decision Making - Medical Decision Making 01/16/18 16:30 Pt presents to the ED complaining of pitting edema to both legs. No shortness of breath or chest pain. Labs and cxr checked to evaluate for CHF or renal failure and are negative. Will discharge home with follow up with her PMD. <Mera Moon - Last Filed: 01/16/18 16:36> *DC/Admit/Observation/Transfer - Attestations Scribe Attestion: 01/16/18 13:07 Documentation prepared by Dalia Callahan, acting as medical facilities section director for Mera Moon MD. <Dalia Callahan - Last Filed: 01/16/18 13:07> - Discharge Dispostion Decision to Admit order: No <Mera Moon - Last Filed: 01/16/18 16:36> Diagnosis at time of Disposition: Edema Qualifiers: Edema type: unspecified Qualified Code(s): R60.9 - Edema, unspecified - Discharge Dispostion Disposition: HOME Condition at time of disposition: Good - Referrals Referrals: ON STAFF,NOT [Primary Care Provider] - - Patient Instructions Printed Discharge Instructions: DI for Peripheral Edema -- Bilateral Additional Instructions: return to the ED for chest pain or shortness of breath, worsening leg swelling, chest pain, other new or worsening symptoms. Print Language: CROATIAN - Post Discharge Activity
[2018-01-16 13:12] LABS: ALBUMIN 3.7 g/dl (3.4-5.0); ALK PHOS 131 U/L (45-117); ANION GAP 8 (8-16); BILIRUBIN,TOTAL 0.5 mg/dL (0.2-1.0); BLOOD UREA NITROGEN 33 mg/dL (7-18); CALCIUM 9.3 mg/dL (8.5-10.1); CHLORIDE 106 mmol/L (98-107); CO2 29 mmol/L (21-32); CREATININE 1.1 mg/dL (0.55-1.02); GLUCOSE,RANDOM 76 mg/dL (74-106); SGPT/ALT 33 U/L (12-78); SODIUM 143 mmol/L (136-145)
[2018-01-16 13:14] LABS: N-TERMINAL BNP 88.29 pg/ml (5-450)
[2018-01-16 13:27] LABS: POTASSIUM 4.5 mmol/L (3.5-5.1); SGOT/AST 30 U/L (15-37)
[2018-01-16 16:24] VITALS: BP 151/71; PULSE 66
--- NOTE | 2018-01-17 17:04 | EKG ---
Test Reason : Blood Pressure : / mmHG Vent. Rate : 069 BPM Atrial Rate : 069 BPM P-R Int : 184 ms QRS Dur : 098 ms QT Int : 414 ms P-R-T Axes : 061 -47 059 degrees QTc Int : 443 ms NORMAL SINUS RHYTHM LEFT AXIS DEVIATION ABNORMAL ECG Confirmed by MD MATT, NATTY ([id number]) on 01/17/2018 5:04:15 PM Referred By: Confirmed By:NATTY GUTIERREZ MD
== END 2018-01-16 16:59 | disposition home or self-care (01) ==
LOC: JER 11:22
DX: R60.0 Localized edema (principal); I10 Essential (primary) hypertension; E11.9 Type 2 diabetes mellitus without complications; Z79.4 Long term (current) use of insulin
CPT/HCPCS: 36415; 71045-TC-FY; 80053; 83880; 85025; 93005; 93010; 99284-25